=== PATIENT | male | born 1975 | race African-American/Black ===

== ENCOUNTER 2018-06-18 14:06 | Inpatient (IN) | payer SELFPAY ==
[2018-06-18] MEDS ORDERED: hydrALAZINE 20 MG/ML VIAL ONE (14:53)
[2018-06-18] MEDS ORDERED: Labetalol HCl 100 MG/20 ML VIAL ONE (15:23)
[2018-06-18 15:39] LABS: Hemoglobin 10.5 g/dL (14.0-18.0); Mean Corpuscular HGB CONC 31.7 g/dL (32.0-36.0); Mean Corpuscular Hemoglobin 28.3 pg (27.0-31.0); Mean Corpuscular Volume 89.4 fL (78.0-98.0); Mean Platelet Volume 8.8 fL (7.4-10.4); Platelet Count 327 thou/uL (130-400); RBC Distribution Width 15.2 % (11.5-14.5); White Blood Cell (WBC) Count 5.8 thou/uL (4.8-10.8)
[2018-06-18] MEDS ORDERED: Proparacaine 0.5% Opth 15 ML BOT ONE (15:42)
[2018-06-18] MEDS ORDERED: Nitroglycerin 2% Ointment 1 INCH/1 GM Packet ONE (15:45)
[2018-06-18 16:00] LABS: Hypochromia SLIGHT = 6-15 cells (100X) (0-5/hpf); Lymphocytes 31 % (21-51); MDiff Complete? YES; Neutrophil 69 % (42-75); Platelet Morphology Comment Appears Adequate
[2018-06-18] MEDS ORDERED: niCARdipine 20MG In NaCl 20 MG/200 ML BAG ONE ×2 (16:14→18:57)
[2018-06-18 16:33] LABS: ALT (SGPT) 17 U/L (8-55); AST (SGOT) 17 U/L (5-34); Albumin 3.2 g/dL (3.5-5.0); Alkaline Phosphatase 44 U/L (40-150); Anion Gap 12 mmol/L (10-20); BUN (Urea Nitrogen) 20 mg/dL (8.9-20.6); Bilirubin, Total 0.8 mg/dL (0.2-1.2); Calc. Creatinine Clearance 0 mL/min (70-130); Calcium 8.8 mg/dL (7.8-10.44); Carbon Dioxide 19 mmol/L (22-29); Chloride 110 mmol/L (98-107); Estimated GFR-MDRD 61; Globulin 3.7 g/dL (2.4-3.5); Glucose 108 mg/dL (70-105); Potassium 4.2 mmol/L (3.5-5.1); Protein, Total 6.9 g/dL (6.0-8.3); Sodium 137 mmol/L (136-145)
--- NOTE | 2018-06-18 16:53 | PDOC.FPRHP ---
- History of Present Illness Chief Complaint: Blurry Vision History of Present Illness: Mr Rocha is a 42yo male with pmh of HTN and poorly controlled DM presenting with blurry vision that started 4 days ago. He recently moved from [place], [place]. Can see better out of right eye than the left. Started gradually. Took off a day of work last week due to blurry vision. 2 days ago it got acutely worse. Last hospitalized in 2017 for hyperglycemia. No known hx of DKA. Takes Novolog 70/30 30U once daily. Currently wearing a boot due to left diabetic foot wound. Hx of right 2nd toe amputation due to poorly controlled DM. Denies chest pain, palpitations, LAMAR, confusion. Brother is present in the room. Reports seeing doctor at [facility] in February who prescribed Losartan 50mg. Brother reports he has been complaining of frequent headaches over the last 4 months. PCP: None just moved from [place] ED Course: Started on Cardene gtt. Mg 2g, Nitro patch, Labetalol 20mg. - Allergies/Adverse Reactions Allergies Allergy/AdvReac Type Severity Reaction Status Date / Time No Known Allergies Allergy Unverified 06/18/18 17:49 - Home Medications Medication Instructions Recorded Confirmed Type Atorvastatin Calcium [Lipitor] 20 mg PO DAILY 06/18/18 06/18/18 History Losartan Potassium 50 mg PO QAM 06/18/18 06/18/18 History Insulin NPH Hum/Reg Insulin HM 30 unit SC BID 06/19/18 06/19/18 History [Novolin 70/30] - History PMHx: Insulin Dependent DM, HTN, possible CARMELO PSHx: Testicular surgery, back surgery, right 2nd toe amputation FHx: Hx of DM, HTN on fathers side Social: Denies alcohol, tobacco and drug use. - Review of Systems General: denies: fever/chills, weight/appetite/sleep changes Eyes: reports: vision changes. denies: eye pain ENT: denies: nasal congestion, rhinorrhea Respiratory: denies: cough, congestion, shortness of breath Cardiovascular: reports: edema. denies: chest pain, palpitation Gastrointestinal: reports: nausea, vomiting. denies: diarrhea, constipation, abdominal pain Genitourinary: denies: dysuria, other (hematuria) Skin: reports: lesions (left foot wound). denies: rashes Musculoskeletal: reports: swelling. denies: pain Neurological: denies: numbness, weakness - Vital signs BP: 174/82 (Max: 214/116) HR: 66 RR: 18 Tmax: 98.1 Pox: 97% on RA Wt: 188kg - Physical Exam Constitutional: NAD, awake, alert and oriented, well developed -Constitutional: Obese HEENT: normocephalic and atraumatic, conjunctiva clear, MMM, oropharynx clear, other (right upper) -HEENT: poor dentition Neck: supple, trachea midline, no LAD, no thyromegaly Heart: RRR, no murmurs/rubs/gallops, other (edema present b/l LE) Lungs: CTAB, no respiratory distress Abdomen: soft, non-tender, bowel sounds present Musculoskeletal: other (notable edema bilaterally) Neurological: no focal deficit Skin: other (diabetic foot wound on plantar aspect of foot) Heme/Lymphatic: no unusual bruising or bleeding Psychiatric: normal mood and affect, good judgment and insight, intact recent and remote memory FMR H&P: Results - Labs Result Diagrams: 06/19/18 04:06 06/18/18 16:11 Lab results: WBC 5.8 thou/uL (4.8-10.8) 06/18/18 15:21 Hgb 10.5 g/dL (14.0-18.0) L 06/18/18 15:21 Hct 33.1 % (42.0-52.0) L 06/18/18 15:21 MCV 89.4 fL (78.0-98.0) 06/18/18 15:21 Plt Count 327 thou/uL (130-400) 06/18/18 15:21 Sodium 137 mmol/L (136-145) 06/18/18 16:11 Potassium 4.2 mmol/L (3.5-5.1) 06/18/18 16:11 Chloride 110 mmol/L (98-107) H 06/18/18 16:11 Carbon Dioxide 19 mmol/L (22-29) L 06/18/18 16:11 BUN 20 mg/dL (8.9-20.6) 06/18/18 16:11 Creatinine 1.29 mg/dL (0.7-1.3) 06/18/18 16:11 Glucose 108 mg/dL (70-105) H 06/18/18 16:11 Calcium 8.8 mg/dL (7.8-10.44) 06/18/18 16:11 Total Bilirubin 0.8 mg/dL (0.2-1.2) 06/18/18 16:11 AST 17 U/L (5-34) 06/18/18 16:11 ALT 17 U/L (8-55) 06/18/18 16:11 Alkaline Phosphatase 44 U/L (40-150) 06/18/18 16:11 Serum Total Protein 6.9 g/dL (6.0-8.3) 06/18/18 16:11 Albumin 3.2 g/dL (3.5-5.0) L 06/18/18 16:11 FMR H&P: A/P - Problem List (1) Bilateral retinal detachment Current Visit: Yes Status: Acute Code(s): H33.23 - SEROUS RETINAL DETACHMENT , BILATERAL (2) Hypertensive urgency Current Visit: Yes Status: Acute Code(s): I16.0 - HYPERTENSIVE URGENCY (3) Chronic hypertension Current Visit: Yes Status: Acute Code(s): I10 - ESSENTIAL (PRIMARY) HYPERTENSION (4) Insulin dependent diabetes mellitus Current Visit: Yes Status: Acute Code(s): E11.9 - TYPE 2 DIABETES MELLITUS WITHOUT COMPLICATIONS; Z79.4 - SENIOR LIVING (CURRENT) USE OF INSULIN (5) CARMELO (obstructive sleep apnea) Current Visit: Yes Status: Acute Code(s): G47.33 - OBSTRUCTIVE SLEEP APNEA ( ADULT) (PEDIATRIC) - Plan Mr Rocha is a 42yo male with pmh of HTN and poorly controlled DM presenting with bilateral retinal detachments and HTN emergency HTN emergency - Initial BPs 220's/100's - Goal for first 24hrs 160 SBP with Cardene gtt started in ED - Will initiate PO BPs meds prior to d/c - Trend trops - Ordered TSH, FLP - Admit to ICU, will consult pulm Left diabetic foot ulcer - Consulted wound care. Currently wearing a boot. - PT consulted Bilateral Retinal Detachment - Bedside US by ED suggestive of detachment - Dr. Ayala consulted in ED, appreciate recs - Control BP as above DMII - Likely uncontrolled, will check A1c - Currently on Novolog 70/30 30U daily. Will continue - CC diet and dietetics consult - ACHS accuchecks with SSI Normocytic Anemia - Hgb 10.7 - Continue to monitor with CBC - Consider outpt workup Probable CARMELO - Recommend outpt sleep study duy for HTN control Code Status: FULL DVT ppx: SCDs PCP: None, pt just moved to town. Reports seeing Dr padilla [facility] in [place] Discussed with Dr Bowens who was present in the ED when pt was evaluated FMR H&P: Upper Level - Pertinent history Deangelo Rocha is a 42 year old M with a PMH of insulin dependent type 2 DM, HTN who presented to the ED with a 3 day history of progressively worsening blurry vision. States that she recently moved from [place] and he established care with a pcp, unsure of who, who gave him losartan but he has not been taking his medication. States that he taken insulin 70/30 30 U daily. He denies fever, chills, sudden onset vision loss, dark spots in vision, flashing lights in visual field, altered mental status, head injury/trauma, abnormalities in gait. He also endorses a foot wound that he was getting wound care for but not since he moved to [facility]. Patient did endorse worsening of headaches over the last 4 months. The blurry vision is worse in the left eye but present in both. He wears glasses regularly. In the ED, his initial BP, per ERMD, was in the 220s-240s systolic. ERMD performed bedside US of eyes and there was significant concern for bilateral retinal detachment. ERMD consulted ophtho, Dr. Ayala, who recommended getting BP control and agreed to come see patient during admission. In the ER, he received Labetalol 20 mg IVP following by initiation of Cardene gtt for BP control. He was also given nitro patch and mag sulfate IV. BPs when admitting team saw patient were in the 140s-160s on cardene gtt. ROS: 12 point ROS reviewed with patient and were negative unless otherwise stated in HPI. - Pertinent findings Vitals: BP 162/72, HR 70, RR 16, T 97.9, O2 sat 98% on RA PE: Gen: morbidly obese male in no acute distress HEENT: AT/NC, MMM, EOMI, PERRL, conjunctiva clear without erythema or icterus, no JVD CV: RRR no murmurs, rubs, or gallops Lungs: CTAB, no wheezes, rales, rhonchi Abd: obese, soft, nontender Ext: edema noted bilateral Neuro: no focal deficits, CN II-XII grossly intact Psych: Alert and oriented X4, normal mood and affect Skin: diabetic foot wound to left heel Laboratory Tests 06/18/18 06/18/18 06/18/18 15:21 16:11 16:11 WBC 5.8 Hgb 10.5 L Hct 33.1 L Plt Count 327 Sodium 137 Potassium 4.2 Chloride 110 H Carbon Dioxide 19 L BUN 20 Creatinine 1.29 Estimated GFR (MDRD) 61 Glucose 108 H Calcium 8.8 Magnesium 1.5 L Total Bilirubin 0.8 AST 17 ALT 17 Alkaline Phosphatase 44 Troponin I Serum Total Protein 6.9 Albumin 3.2 L 06/18/18 16:11 WBC Hgb Hct Plt Count Sodium Potassium Chloride Carbon Dioxide BUN Creatinine Estimated GFR (MDRD) Glucose Calcium Magnesium Total Bilirubin AST ALT Alkaline Phosphatase Troponin I Less than 0.010 Serum Total Protein Albumin EKG: NSR with rate of 72, cannot r/o anterior infarct - Plan Date/Time: 06/18/181652 ILee MD, have evaluated this patient and agree with findings/plan as outlined by hr intern resident. Pertinent changes/additions are listed here. Hypertensive Emergency - BPs in the 220s-240s systolic in ED with likely b/l retinal detachment - Admit to CCU - Dr. Ayala consulted in the ED, appreciate recs - Consult Pulm/Crit Care, appreciate recs - Continue cardene gtt with goal BP of 160-180s for the first 24 hours - Trend cardiac enzymes, check TSH Bilateral Retinal Detachment: likely - ERMD performed bedside US which was suggestive of detachment - progressive worsening of blurry vision over the last 3 days - Dr. Ayala consulted in ED, appreciate recs - otherwise, see #1 DM2, insulin dependent - Continue home regimen of 70/30, 30 U SQ daily - Accuchecks ACHS - CC diet, HH incl low Na diet - Mod SSI - check HgA1c and FLP HTN - will closely maintain goal pressures with cardene gtt - will transition to PO antihypertensive within 24-48 hours Diabetic Foot Wound - consulted wound care Normocytic Anemia - hg 10.5 on admission - continue to monitor - checking iron studies - will likely need outpatient workup/follow up Hypomagnesemia - Mag 1.5 in ED, s/p Mag sulfate IV - continue to monitor and replace as needed Morbid Obesity - fall precautions, amb with assist - 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 Max and Vineet I agree with the History, Examination, Assessment and Plan documented above with any addition or exceptions noted below. 42 yo obese diabetic male with 3 days worsening vision evaluated in ER with hypertensive emergency with acute vision loss due to bilateral retinal detachment . Patient will be admitted to ICU for IV cardene drip for BP management and Ophthalmology evaluation. rec SS insulin for DM control and basal insulin, left foot with Charcot foot and diabetic ulcer rec wound care consult immediate issue is BP control and attention to vision loss however assisted will need further evaluation of anemia, r/o CARMELO , optimize diabetic control and continued evaluation left foot.
[2018-06-18] MEDS ORDERED: Magnesium 2 GM/50 ML BAG (IN WATER) ONE (17:01)
[2018-06-18] MEDS ORDERED: niCARdipine HCl 25 MG in Sodium Chloride 0.9% 250 ML 240 ML IVPB SCH (18:15)
--- NOTE | 2018-06-18 18:38 | CT ---
CT OF THE BRAIN WITHOUT CONTRAST: 06/18/18 HISTORY: 42-year-old male with gradual onset of vision changes with bilateral blurring of his vision. Patient reports an episode of nausea and vomiting following vision changes. FINDINGS: No evidence of infarct, hemorrhage, midline shift or abnormal extra-axial fluid collections are seen. The ventricular size is normal and the basilar cisterns patent. The bony calvarium is intact. The vi sualized paranasal sinuses and mastoid air cells are well aerated. IMPRESSION: No CT evidence of acute intracranial process. POS: [facility]
--- NOTE | 2018-06-18 19:20 | CT ---
CT FACIAL BONES WITHOUT CONTRAST 06/18/18 HISTORY: Vision changes. Blurring of vision. FINDINGS: The orbital chaidez are intact. No proptosis is seen. No significant retrobulbar mass is identified. The facial bones are intact. The visualized paranasal sinuses and mastoid air cells are well aerated. No temporomandibular dislocation is seen. IMPRESSION: No CT evidence of facial or orbital wall fracture. POS: [facility]
[2018-06-18] MEDS ORDERED: Dextrose 5% in Water 1,000 ML IV PRN (19:40)
[2018-06-18] MEDS ORDERED: Dextrose 50% Abboject 50 ML SYRINGE SLOW IVP PRN (19:40)
[2018-06-18] MEDS ORDERED: Ondansetron PF 4 MG/2 ML Vial IVP PRN (19:40)
--- NOTE | 2018-06-18 20:14 | RAD ---
PORTABLE CHEST ONE VIEW: 06/18/18 at 8 p.m. HISTORY: Hypertensive emergency. FINDINGS/IMPRESSION: The heart size is borderline. The lungs are expanded without focal areas of consolidation, pneumotho rax, kolby pulmonary edema or pleural effusions. POS: [facility]
[2018-06-18] MEDS: Sodium Chloride 0.45% 1,000 ML IV SCH (21:46)
[2018-06-19] MEDS: niCARdipine HCl 50 MG in Sodium Chloride 0.9% 250 ML 230 ML IVPB SCH ×4 (02:18→23:03)
[2018-06-19 04:19] LABS: #Basophils 0.1 thou/uL (0.0-0.2); #Eosinphils 0.1 thou/uL (0.0-0.7); #Lymphocytes 3.3 thou/uL (1.20-3.40); #Monocytes 0.4 thou/uL (0.11-0.59); #Neutrophils 3.2 thou/uL (1.40-6.50); %Basophils 1.1 % (0.0-1.0); %Eosinophils 1.5 % (0.0-10.0); %Lymphocytes 46.4 % (21.0-51.0); Hemoglobin 9.3 g/dL (14.0-18.0); Mean Corpuscular HGB CONC 31.1 g/dL (32.0-36.0); Mean Corpuscular Hemoglobin 27.9 pg (27.0-31.0); Mean Corpuscular Volume 89.8 fL (78.0-98.0); Mean Platelet Volume 7.5 fL (7.4-10.4); Platelet Count 320 thou/uL (130-400); Red Blood Cell (RBC) Count 3.32 mill/uL (4.70-6.10); White Blood Cell (WBC) Count 7.1 thou/uL (4.8-10.8)
[2018-06-19 04:24] LABS: Hemoglobin A1c 5.1 % (4.0-6.0)
[2018-06-19 04:40] LABS: Cardiac Risk 4.6 (Less than 4.5)
[2018-06-19] MEDS: Sodium Chloride 0.45% 1,000 ML IV SCH (05:24)
--- NOTE | 2018-06-19 07:36 | PDOC.FM ---
- Subjective Subjective: Seen at bedside this am in no acute distress. No new complaints. Has continued reduced vision in L eye. - Objective MAR Reviewed: Yes Vital Signs & Weight: Vital Signs (12 hours) Temp Pulse Ox 06/19/18 04:00 98.1 F 06/19/18 00:00 98.3 F 06/18/18 20:00 98 F 98 06/18/18 19:40 99 Weight Weight 198.6 kg Most Recent Monitor Data Heart Rate from ECG 77 NIBP 176/89 NIBP BP-Mean 118 Respiration from ECG 22 SpO2 100 I&O: 06/18/18 06/19/18 06/20/18 06:59 06:59 06:59 Intake Total 1762 Output Total 700 Balance 1062 Result Diagrams: 06/19/18 04:06 06/18/18 16:11 Phys Exam - Physical Examination Constitutional: NAD HEENT: moist MMs Loss of lateral peripheral vision in L eye Neck: no JVD Respiratory: clear to auscultation bilateral Cardiovascular: RRR, no significant murmur Gastrointestinal: soft, non-tender, no distention Musculoskeletal: no edema Neurological: non-focal, moves all 4 limbs Psychiatric: normal affect, A&O x 3 Skin: no rash Dx/Plan (1) Bilateral retinal detachment Code(s): H33.23 - SEROUS RETINAL DETACHMENT, BILATERAL Status: Suspected (2) Chronic hypertension Code(s): I10 - ESSENTIAL (PRIMARY) HYPERTENSION Status: Chronic (3) Hypertensive urgency Code(s): I16.0 - HYPERTENSIVE URGENCY Status: Acute (4) Insulin dependent diabetes mellitus Code(s): E11.9 - TYPE 2 DIABETES MELLITUS WITHOUT COMPLICATIONS; Z79.4 - CERTIFIED FLEX ENDOSCOPE REPROCESSOR (CURRENT) USE OF INSULIN Status: Acute (5) CARMELO (obstructive sleep apnea) Code(s): G47.33 - OBSTRUCTIVE SLEEP APNEA (ADULT) (PEDIATRIC) Status: Acute - Plan Plan: 1. Suspected retinal detachment - per ERMD, concern of detachment after bedside US - current physical exam c/w this dx. - ophthalmology consult pending 2. Hypertensive emergency - cardene currently at 4, continue to titrate down - restart home meds 3. DM - well controlled ,A1c of 5.3 - continue home meds - consistent carb diet, achs accucheck 4. HTN - as above 5. CARMELO - cpap at night Dispo: Currently stable, hospital course pending ophtho recommendations Addendum - Attending - Attending Attestation Date/Time: 06/19/18 0707 I personally evaluated the patient and discussed the management with Dr. Michelle I agree with the History, Examination, Assessment and Plan documented above with any addition or exceptions noted below. Appreciate recommendation Critical care to offload fluids. Ophthalmology consult pending continue cardene drip and convert po RX will need at least two antihypertensive agents. Vision improved to right eye left remains with visual field defect. Diabetes under fair control. Appreciate Pulmonary recs Outpatient inlab sleep study suggested r/o CARMELO and potential need BiPaP.
[2018-06-19] MEDS: Atorvastatin Calcium 20 MG TAB PO SCH (08:52)
[2018-06-19] MEDS: Ferrous Sulfate 325 MG TAB PO SCH (08:52)
[2018-06-19] MEDS ORDERED: Losartan 25 MG TAB PO SCH (09:00)
[2018-06-19] MEDS: Furosemide 40 MG/4 ML VIAL SLOW IVP SCH (09:10)
[2018-06-19] MEDS ORDERED: Carvedilol 6.25 MG TAB PO SCH (09:15)
--- NOTE | 2018-06-19 12:29 | CON ---
DATE OF CONSULTATION: 06/19/2018 SERVICE: Pulmonary Medicine. REASON FOR CONSULT: ICU patient. HISTORY OF PRESENT ILLNESS: The patient is a 42-year-old male with past medical history significant for hypertension. He is typically on losartan. He was in his usual state of health until 3 days prior to admission when he started having blurry vision, which became progressively worse to the point where he could barely see. He presented to the emergency department and was discovered to have critically elevated blood pressure. He was also found to have a retinal detachment. As such, he was tucked in the ICU to get blood pressure under better control. Overnight, he was placed on a Cardene drip. His vision has improved ever so slightly. He denies any current fevers, chills, cough, sputum production, shortness of breath, chest pain, nausea, vomiting, or diarrhea. Otherwise, he is in his usual state of health. PAST MEDICAL HISTORY: 1. Hypertension. 2. Dyslipidemia. 3. Type 2 diabetes mellitus. 4. Obstructive sleep apnea, strongly suspected. PAST SURGICAL HISTORY: 1. Testicular surgery. 2. Right second toe amputation. 3. Back surgery. FAMILY HISTORY: Noncontributory. SOCIAL HISTORY: Negative for alcohol, tobacco, or illicit drug use. He has no exposure to chemicals, dust, asbestos, or tuberculosis. ALLERGIES: NO KNOWN DRUG ALLERGIES. MEDICATIONS: List of his inpatient medications were reviewed. No specific updates were made at this time. REVIEW OF SYSTEMS: General; head, ears, eyes, nose, and throat; cardiovascular; respiratory; GI; ; musculoskeletal; neurologic; and skin are negative except as mentioned in the HPI. PHYSICAL EXAMINATION: VITAL SIGNS: Afebrile, pulse 70, blood pressure 177/77, respirations 17, and saturation 100% on room air. GENERAL: The patient is awake and alert, in no apparent distress. LUNGS: Excellent air entry. There is no prolonged expiratory phase or wheezing present. HEART: Normal rate, regular. ABDOMEN: Soft, nontender, and nondistended. Bowel sounds are positive. MUSCULOSKELETAL: No cyanosis or clubbing. There is diffuse 2+ pitting in bilateral lower extremities. He has an ulcer on the backside of his left heel. This was present on admission. GENITOURINARY: No Owens. NEUROLOGIC: Grossly nonfocal. LABORATORY DATA: Comprehensive metabolic profile was essentially unremarkable except for creatinine of 1.29, which is likely close to his baseline. Troponin is negative x2. TSH is unremarkable. Triglyceride 113 and total cholesterol 134, well with our goal. Hemoglobin A1c 5.1. IMAGING DATA: 1. CT of the facial bones demonstrates no evidence of facial orbital wall fracture. 2. CT of the brain demonstrates no acute intracranial abnormality. 3. Chest x-ray demonstrates no acute cardiopulmonary abnormality. ASSESSMENT: 1. Hypertensive emergency. 2. Retinal detachment. 3. Obstructive sleep apnea, strongly suspected. 4. Volume overload. DISCUSSION AND PLAN: We will initiate Lasix. I will put him on p.r.n. blood pressure medications. We will see if we can wean the Cardene away through time. The patient will likely require a diuretic in the outpatient setting. Pulmonary/Critical Care will continue to follow along while he remains in this location. Once he is off the Cardene drip, he will be stable for transition to the floor. I will make certain he is set up for a PSG in the outpatient setting. 70 minutes have been devoted to this patient in various activities. I personally reviewed all imaging studies and laboratory data noted within this document. For fifty percent of this time, I was interacting with the patient at the bedside or coordinating care with the care team. For the remainder of the time I was immediately available to the patient in the hospital unit. Job ID: [id number] MTDD
[2018-06-19] MEDS: HumaLOG 300 UNITS/3 ML VIAL SC PRN ×2 (16:39→23:07)
[2018-06-19] MEDS: Carvedilol 6.25 MG TAB PO SCH (16:43)
--- NOTE | 2018-06-19 19:15 | CON ---
DATE OF CONSULTATION: 06/19/2018 REASON FOR CONSULTATION: I was consulted to see the patient regarding bilateral vision loss. HISTORY OF PRESENT ILLNESS: The patient is a 42-year-old black male, in no apparent distress, seen in the hospital bed. He complained of chronic vision loss in the left eye with a recent decreased vision loss in the right eye. The patient has a known history of diabetes and hypertension, and he was admitted for hypertensive control. He has had no previous retinal exams and has no local general medical doctor. PHYSICAL EXAMINATION: GENERAL: The patient was in no apparent distress. He is obese with bilateral pitting edema on both extremities. OPHTHALMIC: Visual acuity was at least counting fingers at 3 feet in the right eye and hand motion in the left eye with current correction. Pressure by Moe-Pen was15 mmHg in both eyes. Penlight exam showed no neovascularization of the iris in either eye. Corneas were clear in both eyes. There was no evidence of anterior chamber hemorrhage. Pupils were 3 mm in both eyes with a positive APD in the left eye. Motility was full. External examination was normal. Fundus exam, Indirect ophthalmoscopy only revealed proliferative diabetic retinopathy with no vitreous hemorrhage. There was proliferation that was mainly nasal and appeared to be non macular involving the right eye. There was a tractional retinal detachment with questionable macular involvement in the left eye. ASSESSMENT: Proliferative diabetic retinopathy with tractional retinal detachments in both eyes with questionable macular involvement in the left eye. RECOMMENDATIONS: 1. The patient is being medically stabilized and blood pressure controlled. 2. The patient can follow up with [facility] as an [facility]. Typically , these patients require anti-VEGF treatments to control neovascularization and panretinal photocoagulation to the periphery to stabilize the retina. The patient may require surgery on the left eye to relieve his tractional retinal detachment. Job ID: [id number] [facility]
[2018-06-20 04:30] LABS: #Eosinphils 0.2 thou/uL (0.0-0.7); #Lymphocytes 3.6 thou/uL (1.20-3.40); #Monocytes 0.6 thou/uL (0.11-0.59); #Neutrophils 4.2 thou/uL (1.40-6.50); %Basophils 0.6 % (0.0-1.0); %Eosinophils 2.1 % (0.0-10.0); %Monocytes 6.7 % (0.0-10.0); %Neutrophils 48.7 % (42.0-75.0); Hemoglobin 10.2 g/dL (14.0-18.0); Mean Corpuscular HGB CONC 31.1 g/dL (32.0-36.0); Mean Corpuscular Hemoglobin 27.8 pg (27.0-31.0); Mean Corpuscular Volume 89.4 fL (78.0-98.0); Mean Platelet Volume 7.5 fL (7.4-10.4); Platelet Count 354 thou/uL (130-400); RBC Distribution Width 13.1 % (11.5-14.5); Red Blood Cell (RBC) Count 3.67 mill/uL (4.70-6.10); White Blood Cell (WBC) Count 8.5 thou/uL (4.8-10.8)
[2018-06-20 04:50] LABS: Phosphorus 3.3 mg/dL (2.3-4.7)
[2018-06-20 04:51] LABS: Anion Gap 9 mmol/L (10-20); BUN (Urea Nitrogen) 18 mg/dL (8.9-20.6); Calc. Creatinine Clearance 200 mL/min (70-130); Calcium 8.7 mg/dL (7.8-10.44); Carbon Dioxide 23 mmol/L (22-29); Chloride 108 mmol/L (98-107); Estimated GFR-MDRD 71; Glucose 160 mg/dL (70-105); Magnesium 1.6 mg/dL (1.6-2.6); Potassium 4.4 mmol/L (3.5-5.1); Sodium 136 mmol/L (136-145)
--- NOTE | 2018-06-20 06:43 | PDOC.FM ---
- Subjective Subjective: Seen at bedside this morning resting comfortably. No new complaints or concerns from patient or nursing. No acute events over night. He was unable to be weaned from cardene yesterday. - Objective MAR Reviewed: Yes Vital Signs & Weight: Vital Signs (12 hours) Temp Pulse Ox 06/20/18 04:00 98.1 F 06/20/18 00:00 98.2 F 06/19/18 20:00 98.1 F 06/19/18 19:44 99 06/19/18 19:40 100 Weight Weight 198.6 kg Most Recent Monitor Data Heart Rate from ECG 89 NIBP 185/73 NIBP BP-Mean 110 Respiration from ECG 17 SpO2 100 I&O: 06/18/18 06/19/18 06/20/18 06:59 06:59 06:59 Intake Total 1762 1255 Output Total 700 2950 Balance 1062 -1695 Result Diagrams: 06/20/18 04:07 06/21/18 05:52 Phys Exam - Physical Examination Constitutional: NAD HEENT: moist MMs Loss of lateral field of vision in L eye Neck: no JVD Respiratory: clear to auscultation bilateral Cardiovascular: RRR 3/6 systolic murmur Gastrointestinal: soft, non-tender Edema in both LE to mid tibia Neurological: non-focal, moves all 4 limbs Psychiatric: normal affect, A&O x 3 Skin: no rash Dx/Plan (1) Bilateral retinal detachment Code(s): H33.23 - SEROUS RETINAL DETACHMENT, BILATERAL Status: Acute (2) Chronic hypertension Code(s): I10 - ESSENTIAL (PRIMARY) HYPERTENSION Status: Chronic (3) Hypertensive urgency Code(s): I16.0 - HYPERTENSIVE URGENCY Status: Resolved (4) Insulin dependent diabetes mellitus Code(s): E11.9 - TYPE 2 DIABETES MELLITUS WITHOUT COMPLICATIONS; Z79.4 - FPC (CURRENT) USE OF INSULIN Status: Suspected (5) CARMELO (obstructive sleep apnea) Code(s): G47.33 - OBSTRUCTIVE SLEEP APNEA (ADULT) (PEDIATRIC) Status: Suspected - Plan Plan: 1. Bilateral retinal detachment - Seen by Dr Ayala yesterday who confirmed b/l detachment with possible involvement of the L macula. Recommendation was to fu outpatient 2. Hypertensive emergency - cardene currently at 4. Was unable to decrease rate yesterday - Increase losartan dose this morning. Was started on coreg yesteday 3. DM - well controlled ,A1c of 5.3 - continue home meds - consistent carb diet, achs accucheck 4. HTN - as above 5. CARMELO, suspected - will need outpatient study. This may be contributing as a secondary cause of resistant hypertension Dispo: currently stable. Likely LOS 24-48 hours. Will move out of unit when he can be weaned from drip. Addendum - Attending - Attending Attestation Date/Time: 06/21/18 2864 I personally evaluated the patient and discussed the management with on 06/20/2018 I agree with the History, Examination, Assessment and Plan documented above with any addition or exceptions noted below - Patient without complaints. Afebrile VSS. A/P: 1) HTN emergency- back on cardene drip. Adjusted po meds. Continue to titrate as needed. 2) Retinal detachment - plan for outpatient follow-up. 3) DM - continue current meds 4) HTN - will check causes of seconday HTN; enal USG ordered and labs.
[2018-06-20] MEDS: HumaLOG 300 UNITS/3 ML VIAL SC PRN ×3 (07:23→21:20)
[2018-06-20] MEDS: Ferrous Sulfate 325 MG TAB PO SCH (08:19)
[2018-06-20] MEDS: Carvedilol 6.25 MG TAB PO SCH ×2 (08:19→17:17)
[2018-06-20] MEDS: Losartan 25 MG TAB PO SCH (08:20)
[2018-06-20] MEDS: Atorvastatin Calcium 20 MG TAB PO SCH (08:21)
[2018-06-20] MEDS: Furosemide 40 MG/4 ML VIAL SLOW IVP SCH (08:21)
[2018-06-20] MEDS ORDERED: HumuLIN 70/30 (300 UNITS/3 ML VIAL) SC SCH (09:00)
[2018-06-20] MEDS ORDERED: cloNIDine 0.2 MG TAB PO SCH (10:30)
[2018-06-20] MEDS: niCARdipine HCl 50 MG in Sodium Chloride 0.9% 250 ML 230 ML IVPB SCH ×3 (11:00→21:13)
[2018-06-20] MEDS: HumuLIN 70/30 (300 UNITS/3 ML VIAL) SC SCH ×2 (11:01→21:18)
[2018-06-20] MEDS: cloNIDine 0.2 MG TAB PO PRN ×2 (16:19→22:17)
--- NOTE | 2018-06-20 16:27 | PRG ---
DATE OF SERVICE: 06/20/2018 SERVICE: Pulmonary Medicine. INTERVAL HISTORY: The patient is doing wonderful from respiratory standpoint. He lost IV access today. As such, the Cardene drip is off, his blood pressure shot back up. Yet, we are in the midst of trying to establish IV access so that we can restart the Cardene. He denies any new onset neurologic changes or visual disturbances. PHYSICAL EXAMINATION: VITAL SIGNS: Afebrile, pulse 64, blood pressure 176/81, respirations 16, saturation 98% on room air. GENERAL: The patient is awake and alert, in no apparent distress. LUNGS: Excellent air entry with no prolonged expiratory phase or wheezing. HEART: Normal rate and regular. ABDOMEN: Soft, nontender, and nondistended. Bowel sounds are positive. MUSCULOSKELETAL: No cyanosis or clubbing. No pitting in the bilateral lower extremities. NEUROLOGIC: Grossly nonfocal. Visual disturbances from the left eye are still present. LABORATORY DATA: WBC 8.5, hemoglobin 10.2, platelets 354,000. Creatinine 1.34, which is gently up trending. Basic metabolic profile is otherwise unremarkable. Magnesium 1.6, phosphorus 3.3. IMAGING STUDIES: Echocardiogram shows normal ejection fraction with diastolic dysfunction. ASSESSMENT: 1. Hypertensive emergency. 2. Retinal detachment with left eye visual disturbance. 3. Obstructive sleep apnea, strongly suspected. 4. Chronic diastolic heart failure. PLAN: The patient will get back on his Cardene drip. We are going to escalate our p.o. dose of blood pressure medications. He will stay in the ICU until he is off this drip, and his blood pressures are maintained within an acceptable range. Pulmonary Critical Care will continue to follow along while he remains in this location. In the outpatient setting, I will make certain that he has appropriate followup to investigate his sleep apnea. Job ID: [id number]
--- NOTE | 2018-06-21 06:42 | PDOC.FM ---
- Subjective Subjective: Seen at bedside this morning resting comfortably. Cash was dc'd over night and BP has been below 180/100 since. No new complaints. No acute events over night. - Objective MAR Reviewed: Yes Vital Signs & Weight: Vital Signs (12 hours) Temp BP Pulse Ox 06/21/18 04:00 97.8 F 06/21/18 00:00 98.0 F 06/20/18 22:17 188/89 H 06/20/18 20:00 98.6 F 96 06/20/18 19:00 98 Weight Admit Weight 198.22 kg Weight 198.6 kg Most Recent Monitor Data Heart Rate from ECG 62 NIBP 151/84 NIBP BP-Mean 106 Respiration from ECG 15 SpO2 96 I&O: 06/19/18 06/20/18 06/21/18 06:59 06:59 06:59 Intake Total 1762 1255 1721 Output Total 700 2950 2750 Balance 1062 -1695 -1029 Result Diagrams: 06/20/18 04:07 06/21/18 05:52 Phys Exam - Physical Examination Constitutional: NAD HEENT: moist MMs Neck: no JVD Respiratory: clear to auscultation bilateral Cardiovascular: RRR 2/6 systolic murmur Gastrointestinal: soft, non-tender, no distention Pitting edema to mid tibia b/l Neurological: moves all 4 limbs Psychiatric: normal affect, A&O x 3 Skin: no rash Dx/Plan (1) Bilateral retinal detachment Code(s): H33.23 - SEROUS RETINAL DETACHMENT, BILATERAL Status: Acute (2) Chronic hypertension Code(s): I10 - ESSENTIAL (PRIMARY) HYPERTENSION Status: Chronic (3) Hypertensive urgency Code(s): I16.0 - HYPERTENSIVE URGENCY Status: Resolved (4) Insulin dependent diabetes mellitus Code(s): E11.9 - TYPE 2 DIABETES MELLITUS WITHOUT COMPLICATIONS; Z79.4 - [facility] (CURRENT) USE OF INSULIN Status: Suspected (5) CARMELO (obstructive sleep apnea) Code(s): G47.33 - OBSTRUCTIVE SLEEP APNEA (ADULT) (PEDIATRIC) Status: Suspected - Plan Plan: 1. Bilateral retinal detachment - Recommendation was to fu outpatient w/ Dr Ayala 2. Hypertensive emergency, resolved 3. DM - well controlled ,A1c of 5.3 - continue home meds - consistent carb diet, achs accucheck 4. HTN - adding HCTZ - work up for secondary causes with renal doppler, renin/aldosterone, and outpatient sleep study 5. CARMELO, suspected - will need outpatient study. This may be contributing as a secondary cause of resistant hypertension Dispo: currently stable and improving. Possibly ready to dc today if BP continues to be controlled. Will transfer out of ICU today Addendum - Attending - Attending Attestation Date/Time: 06/21/18 8566 I personally evaluated the patient and discussed the management with Dr. Michelle I agree with the History, Examination, Assessment and Plan documented above with any addition or exceptions noted below - Patient without complaints. Afebrile BP 150-170/70-90s A/P: 1) HTN emergency- off cardene; continue to adjust po meds as needed. 2) Malignant HTN - renal artery doppler and labs ordered to evalaute for secondary causes. Continue to adjust po meds. 3) Retinal detachment - follow-up as outpatient
[2018-06-21 07:31] LABS: Anion Gap 11 mmol/L (10-20); BUN (Urea Nitrogen) 19 mg/dL (8.9-20.6); Calc. Creatinine Clearance 219 mL/min (70-130); Calcium 8.8 mg/dL (7.8-10.44); Carbon Dioxide 24 mmol/L (22-29); Chloride 106 mmol/L (98-107); Estimated GFR-MDRD 79; Glucose 96 mg/dL (70-105); Potassium 4.6 mmol/L (3.5-5.1); Sodium 136 mmol/L (136-145)
[2018-06-21] MEDS: Losartan 25 MG TAB PO SCH (08:43)
[2018-06-21] MEDS: HumuLIN 70/30 (300 UNITS/3 ML VIAL) SC SCH ×2 (08:44→21:09)
[2018-06-21] MEDS: Carvedilol 6.25 MG TAB PO SCH ×2 (08:44→16:45)
[2018-06-21] MEDS: Ferrous Sulfate 325 MG TAB PO SCH (08:44)
[2018-06-21] MEDS: Atorvastatin Calcium 20 MG TAB PO SCH (08:44)
[2018-06-21] MEDS: Furosemide 40 MG/4 ML VIAL SLOW IVP SCH (08:44)
[2018-06-21] MEDS ORDERED: Hydrochlorothiazide 25 MG TAB PO SCH (09:00)
[2018-06-21] MEDS ORDERED: Magnesium 2 GM/50 ML 2 GM in Premix Bag 1 BAG IVPB SCH (10:00)
[2018-06-21] MEDS ORDERED: Furosemide 40 MG TAB PO PRN (13:41)
[2018-06-21] MEDS ORDERED: Iopamidol 370 76% 100 ML VIAL ONE (14:29)
[2018-06-21] MEDS: hydrALAZINE 20 MG/ML VIAL SLOW IVP PRN (15:05)
--- NOTE | 2018-06-21 15:48 | ULT ---
Please note this dictated under the renal ultrasound header. POS: TPC
--- NOTE | 2018-06-21 15:48 | ULT ---
RENAL ULTRASOUND: HISTORY: Hypertension, difficult to control. FINDINGS: Real-time imaging of the right and left kidneys was performed. This exam is technically difficult du e to body habitus. The right kidney measures 13.1 cm and the left kidney measures 9.8 cm in size. N o signs of any cyst, mass or obstruction. The bladder region appears unremarkable. DOPPLER EVALUATION WITH SPECTRAL ANALYSIS: This exam is technically difficult on the right side. The highest velocity measurements that would b e obtained were peak systolic velocity measurements of 12 cm/s at the distal renal artery. The more proximal renal artery is never visualized. On the left side, renal artery velocity measurements are 166 cm/s. Again, the more proximal renal artery is not well visualized. Aortic velocities are also difficult to obtain with aortic velocities of 26 cm/s. The resistive index on the right is 0.67 and on the left 0.69. IMPRESSION: Technically difficult examination. There is a size discrepancy with the left kidney being smaller th an the right. Elevated velocity measurements in the visualized portion of the left renal artery. Th is raises the possibility of an underlying renal artery stenosis. In addition, the aortic velocities were very difficult to obtain and are reduced at 25 cm/s. Further evaluation with CT angiography wo uld probably be helpful in this case. POS: TPC
--- NOTE | 2018-06-21 16:14 | PRG ---
DATE OF SERVICE: 06/21/2018 SERVICE: Pulmonary Medicine. INTERVAL HISTORY: The patient is doing really well from respiratory standpoint. He is on room air. His eye has increasing and decreasing haziness. When he got out of bed and into a chair, he got worse transiently before improving. He denies any current fevers, chills, or overnight events. PHYSICAL EXAMINATION: VITAL SIGNS: Afebrile. Pulse 63, blood pressure 172/112, respirations 6, and saturation 100% on room air. GENERAL: The patient is awake and alert, in no apparent distress. LUNGS: Excellent air entry. No prolonged expiratory phase or wheezing is appreciated. HEART: Normal rate, regular. ABDOMEN: Soft, nontender, and nondistended. Bowel sounds are positive. MUSCULOSKELETAL: No cyanosis or clubbing. No pitting in the bilateral lower extremities. NEUROLOGIC: Grossly nonfocal. LABORATORY DATA: Creatinine 1.22 and stable. Basic metabolic profile is otherwise unremarkable. CBC is unremarkable. ASSESSMENT: 1. Hypertensive emergency. 2. Retinal detachment with left eye visual disturbance. 3. Obstructive sleep apnea, strongly suspected. 4. Chronic diastolic heart failure. DISCUSSION AND PLAN: The patient is doing absolutely fantastic from a cardiovascular standpoint. He is on multiple blood pressure agents and his blood pressures are now controlled off the Cardene drip. At this point, he is stable for transition out of the ICU, or discharge home. A secondary hypertension workup is underway. Assuming this is unremarkable, he can be considered for transition home soon. He has appropriate followup already scheduled with Ophthalmology. I will be seeing him in the outpatient setting to set him for a polysomnogram. We will arrange this as soon as possible. Job ID: [id number]
[2018-06-21] MEDS: cloNIDine 0.2 MG TAB PO PRN (16:45)
--- NOTE | 2018-06-21 16:58 | CT ---
CTA of the abdomen with IV contrast and Three-D reformatted imaging INDICATION: Concern for renal artery stenosis with hypertension FINDINGS: There are single renal arteries bilaterally. No hemodynamically significant stenosis is demonstrated. The right kidney measures 12.3 x 6.4 cm. The left kidney measures 12.9 x 6.1 cm. The celiac and SMA arteries are widely patent. The YUN is widely patent. No acute aortic stenosis, oc clusion or aneurysmal formation is demonstrated. The aortic bifurcation is patent. There are mild vascular calcifications involving the right common iliac artery. Lung bases are clear. There is layered gallstones within the gallbladder. No focal hepatic lesion is evident. The pancreas, adrenal glands and spleen are normal appearing. There is a mild amount of retained stool within the colon. There is a fat-containing umbilical hernia. There is scattered degenerative and osteoarthr itic change. IMPRESSION: 1. No hemodynamically significant stenosis involving the single renal arteries bilaterally. 2. Cholelithiasis 3. Mild amount of retained stool within the colon.
[2018-06-22 06:02] LABS: Anion Gap 14 mmol/L (10-20); BUN (Urea Nitrogen) 22 mg/dL (8.9-20.6); Calc. Creatinine Clearance 204 mL/min (70-130); Calcium 8.9 mg/dL (7.8-10.44); Carbon Dioxide 20 mmol/L (22-29); Chloride 104 mmol/L (98-107); Estimated GFR-MDRD 72; Glucose 84 mg/dL (70-105); Potassium 4.2 mmol/L (3.5-5.1); Sodium 134 mmol/L (136-145)
--- NOTE | 2018-06-22 06:43 | PDOC.FM ---
- Subjective Subjective: Patient was moved out of ICU yesterday. Seen at bedside this morning in no acute distress. No new concerns, patient notes continued loss of vision. No concerns from nursing - Objective MAR Reviewed: Yes Vital Signs & Weight: Vital Signs (12 hours) Temp Pulse Resp BP Pulse Ox 06/22/18 04:00 73 142/70 H 06/21/18 20:00 97.8 F 64 20 143/86 H 100 Weight Admit Weight 198.22 kg Weight 198.6 kg Most Recent Monitor Data Heart Rate from ECG 68 NIBP 213/112 NIBP BP-Mean 145 Respiration from ECG 17 SpO2 97 I&O: 06/20/18 06/21/18 06/22/18 06:59 06:59 06:59 Intake Total 1255 1721 660 Output Total 2950 8498 2150 Balance -1665 -8179 -2940 Result Diagrams: 06/20/18 04:07 06/22/18 05:07 Radiology Reviewed by me: Yes Radiology: Renal doppler shows possible left renal aa stenosis. Followup CTA WNL Phys Exam - Physical Examination Constitutional: NAD HEENT: moist MMs Neck: no JVD Respiratory: clear to auscultation bilateral Cardiovascular: RRR, no significant murmur Gastrointestinal: soft, non-tender, no distention pitting to mid tibia, improved from yesterday Neurological: moves all 4 limbs Psychiatric: normal affect, A&O x 3 Skin: no rash Dx/Plan (1) Bilateral retinal detachment Code(s): H33.23 - SEROUS RETINAL DETACHMENT, BILATERAL Status: Acute (2) Chronic hypertension Code(s): I10 - ESSENTIAL (PRIMARY) HYPERTENSION Status: Chronic (3) Hypertensive urgency Code(s): I16.0 - HYPERTENSIVE URGENCY Status: Resolved (4) Insulin dependent diabetes mellitus Code(s): E11.9 - TYPE 2 DIABETES MELLITUS WITHOUT COMPLICATIONS; Z79.4 - [facility] (CURRENT) USE OF INSULIN Status: Suspected (5) CARMELO (obstructive sleep apnea) Code(s): G47.33 - OBSTRUCTIVE SLEEP APNEA (ADULT) (PEDIATRIC) Status: Suspected - Plan Plan: 1. Bilateral retinal detachment - Recommendation was to fu outpatient w/ Dr Ayala 2. Hypertensive emergency, resolved 3. DM - well controlled ,A1c of 5.3 - continue home meds - consistent carb diet, achs accucheck 4. HTN - continues to need periodic PRN meds. Yesterday evening had multiple pressures greater than 200/100. Normal pressure for the past 12 hours. - Will increase HCTZ. Pt is at max dose of Losartan and his HR cant handle larger dose of beta esther. Would add Norvasc if needed. - Current work up for secondary cause negative thus far. Renin/aldosterone pending. Sleep study to be completed outpatient 5. CARMELO, suspected - will need outpatient study. This may be contributing as a secondary cause of resistant hypertension Dispo: currently stable and improving. Possibly ready to dc today if BP continues to be controlled. Addendum - Attending - Attending Attestation Date/Time: 06/23/18 3688 I personally evaluated the patient and discussed the management with Dr. Michelle on 06/22/2018 I agree with the History, Examination, Assessment and Plan documented above with any addition or exceptions noted below - Patient denies any complaints. Denies any LAMAR or SOB. Afebrile BP 170-190/80-100s. A/P: 1) HTN emergency- off cardene; continue to adjust BP meds for improved control. 2) DM- stable; continue current meds. 3) Malignant HTN - CTA of renal arteries negative for stenosis; aldosterone and renin labs pending.
[2018-06-22] MEDS: Hydrochlorothiazide 25 MG TAB PO SCH ×2 (09:21→20:42)
[2018-06-22] MEDS: Ferrous Sulfate 325 MG TAB PO SCH (09:21)
[2018-06-22] MEDS: Furosemide 40 MG/4 ML VIAL SLOW IVP SCH (09:21)
[2018-06-22] MEDS: Atorvastatin Calcium 20 MG TAB PO SCH (09:21)
[2018-06-22] MEDS: Carvedilol 6.25 MG TAB PO SCH ×2 (09:21→16:41)
[2018-06-22] MEDS: Losartan 25 MG TAB PO SCH (09:22)
[2018-06-22] MEDS: HumuLIN 70/30 (300 UNITS/3 ML VIAL) SC SCH ×2 (11:15→20:43)
[2018-06-22] MEDS: hydrALAZINE 20 MG/ML VIAL SLOW IVP PRN (16:39)
[2018-06-22] MEDS ORDERED: Amlodipine 10 MG TAB PO SCH (17:15)
[2018-06-22] MEDS: cloNIDine 0.2 MG TAB PO PRN (20:42)
[2018-06-23] MEDS: cloNIDine 0.2 MG TAB PO PRN (04:13)
--- NOTE | 2018-06-23 06:46 | PDOC.FM ---
- Subjective Subjective: Seen at bedside this morning resting comfortably. No new complaints. No acute events over night. - Objective MAR Reviewed: Yes Vital Signs & Weight: Vital Signs (12 hours) Temp Pulse Resp BP BP BP Pulse Ox 06/23/18 04:13 194/112 H 06/23/18 04:00 98.4 F 90 22 H 194/112 H 97 06/23/18 00:00 62 141/65 H 06/22/18 20:42 188/79 H 06/22/18 20:00 98.2 F 68 16 188/79 H 98 Weight Admit Weight 198.22 kg Weight 198.6 kg Most Recent Monitor Data Heart Rate from ECG 68 NIBP 213/112 NIBP BP-Mean 145 Respiration from ECG 17 SpO2 97 I&O: 06/21/18 06/22/18 06/23/18 06:59 06:59 06:59 Intake Total 1420 738 4597 Output Total 2750 2150 Balance -1029 -1490 1200 Result Diagrams: 06/20/18 04:07 06/22/18 05:07 Phys Exam - Physical Examination Constitutional: NAD HEENT: moist MMs Neck: no JVD Respiratory: clear to auscultation bilateral Cardiovascular: RRR, no significant murmur Gastrointestinal: soft, no distention 1+ pitting edema to knee b/l Neurological: non-focal, moves all 4 limbs Psychiatric: normal affect, A&O x 3 Skin: no rash Dx/Plan (1) Bilateral retinal detachment Code(s): H33.23 - SEROUS RETINAL DETACHMENT, BILATERAL Status: Acute (2) Chronic hypertension Code(s): I10 - ESSENTIAL (PRIMARY) HYPERTENSION Status: Chronic (3) Hypertensive urgency Code(s): I16.0 - HYPERTENSIVE URGENCY Status: Resolved (4) Insulin dependent diabetes mellitus Code(s): E11.9 - TYPE 2 DIABETES MELLITUS WITHOUT COMPLICATIONS; Z79.4 - [facility] (CURRENT) USE OF INSULIN Status: Suspected (5) CARMELO (obstructive sleep apnea) Code(s): G47.33 - OBSTRUCTIVE SLEEP APNEA (ADULT) (PEDIATRIC) Status: Suspected (6) Diabetic foot ulcer Code(s): E11.621 - TYPE 2 DIABETES MELLITUS WITH FOOT ULCER; L97.509 - NON- PRESSURE CHRONIC ULCER OTH PRT UNSP FOOT W UNSP SEVERITY Status: Chronic - Plan Plan: 1. Bilateral retinal detachment - Recommendation was to fu outpatient w/ Dr Ayala 2. Hypertensive emergency, resolved 3. DM - well controlled ,A1c of 5.3 - continue home meds - consistent carb diet, achs accucheck 4. HTN - continues to have labile blood pressure will add norvasc today. - Current work up for secondary cause negative thus far. Renin/aldosterone pending. Sleep study to be completed outpatient 5. CARMELO, suspected - will need outpatient study. This may be contributing as a secondary cause of resistant hypertension 6. Diabetic foot wound - wound care seeing pt. Will need to be continued outpatient. does not appear to be acutely infected. Dispo: currently stable. Possibly ready to dc today if BP continues to be controlled. Addendum - Attending - Attending Attestation Date/Time: 06/23/18 8782 I personally evaluated the patient and discussed the management with Dr. Michelle. I agree with the History, Examination, Assessment and Plan documented above with any addition or exceptions noted below. Patient here for hypertensive emergency and retinal detachments with vision loss that is somewhat improving. He has been evaluated by Ophtho and they plan for further workup outpatient. His BP continues to be labile and uncontrolled. He most certainly has CARMELO that is likely a contributing factor. We are escalating therapy today, and will change Norvasc to Procardia to see if we get better control. Will see if we can start patient on CPAP therapy while here and see if that results in improvement. Labs related to refractory HTN pending, but workup negative for RA stenosis. Consider Aldactone if not controlled with Procardia. Renal function stable.
[2018-06-23] MEDS ORDERED: Amlodipine 10 MG TAB PO SCH (09:00)
[2018-06-23] MEDS: Carvedilol 6.25 MG TAB PO SCH (09:08)
[2018-06-23] MEDS: Atorvastatin Calcium 20 MG TAB PO SCH (09:08)
[2018-06-23] MEDS: Furosemide 40 MG/4 ML VIAL SLOW IVP SCH ×2 (09:08→11:23)
[2018-06-23] MEDS: Losartan 25 MG TAB PO SCH (09:09)
[2018-06-23] MEDS: Ferrous Sulfate 325 MG TAB PO SCH (09:09)
[2018-06-23] MEDS: Hydrochlorothiazide 25 MG TAB PO SCH (09:09)
[2018-06-23] MEDS: HumuLIN 70/30 (300 UNITS/3 ML VIAL) SC SCH (09:10)
[2018-06-23] MEDS ORDERED: NIFEdipine XL 60 MG TAB PO SCH (10:00)
[2018-06-23] MEDS: HumaLOG 300 UNITS/3 ML VIAL SC PRN (10:54)
[2018-06-23 12:51] VITALS: BP 124/59; TEMP 99
[2018-06-23 13:20] VITALS: BMI 55.5
--- NOTE | 2018-06-24 00:50 | DIS ---
DATE OF ADMISSION: 06/18/2018 DATE OF DISCHARGE: 06/23/2018 ADMITTING ATTENDING: Manuel Bowens MD DISCHARGE ATTENDING: Smith Sanders MD. RESIDENT: Adán Michelle DO CONSULTS: 1. Critical care edger machine helper, Dr. Hermes Lynch. 2. Ophthalmology, Dr. Elmo Ayala. PROCEDURES: 1. Brain CT on 06/18, findings, no CT evidence for acute intracranial process. 2. Facial bone CT on 06/18, findings, no CT evidence of facial or orbital wall fracture. 3. Chest x-ray on 06/18, findings, heart size borderline. The lungs expand without focal areas of consolidation, pneumothorax, or kolby pulmonary edema. 4. Echocardiogram on 06/19, findings, the EF 55% to 60%, normal left ventricle, mild left ventricular hypertrophy, and impaired relaxation compatible with diastolic dysfunction. 5. Renal ultrasound on 06/21, size discrepancy of left kidney being smaller than the right. Elevated velocity in the main part of the left renal artery, concerning for possible renal artery stenosis. The aortic values were difficult to obtain, were reduced to 25 cm. 6. CTA abdomen and pelvis, findings, no hemodynamically significant stenosis involving the renal arteries bilaterally, incidental cholelithiasis. ADMITTING DIAGNOSES: 1. Hypertensive emergency. 2. Bilateral retinal detachments. SECONDARY DIAGNOSES: 1. Type 2 diabetes. 2. Suspected obstructive sleep apnea. 3. Chronic diabetic foot ulcer on left foot. 4. Chronic hypertension. DISCHARGE MEDICATIONS: 1. Losartan 100 mg p.o. daily. 2. Lipitor 20 mg p.o. daily. 3. Insulin NPH. 4. Novolin 70/30, 30 units subcu b.i.d. 5. Coreg 6.25 mg p.o. daily. 6. Lasix 40 mg p.o. daily p.r.n. edema. 7. Hydrochlorothiazide 25 mg p.o. b.i.d. 8. Procardia XL 60 mg p.o. daily. HOSPITAL SUMMARY: This is a 42-year-old male who was admitted from the emergency room to the ICU with a diagnoses of hypertensive emergency with concern for retinal detachment was made in the emergency room following a [id number] ultrasound. The patient was started on a Cardene drip and admitted to the ICU. While on Cardene , the patient's blood pressure normalized appropriately without complication. The patient was seen on the 2nd day of admission by Ophthalmology, who conducted a thorough dilated eye exam and determined that the patient likely had bilateral retinal detachments with the left side likely involving part of the macula. It was recommended at that time, the patient followup with Dr. Ayala in the outpatient setting for definitive treatment following discharge from the hospital. Regarding the hypertension, the patient was unable to be weaned from Cardene for several days. He was started on multiple p.o. antihypertensives in order to get control while also on Cardene. By the 3rd day of admission, the patient was able to be titrated off Cardene and was started on all p.o. antihypertensives with p.r.n. clonidine and p.r.n. IV antihypertensives. Due to the difficulty controlling the patient's hypertension, workup for secondary hypertensive causes was initiated. The patient was ruled out for renal artery stenosis. Renin activity level and aldosterone level were drawn and are pending at this time. It was also recommended based on the patient's body habitus and witnessed snoring episodes. The patient had a formal sleep study to evaluate for sleep apnea as a secondary cause of hypertension. On the day of discharge, the patient's blood pressure was reasonably controlled, blood pressures typically in the 140 systolic range. Regarding diabetic foot ulcer, the patient has had this for approximately 2 years, and prior to moving to [facility] from [place], was being seen by Wound Care in the [facility]. At no point did the wound appeared to be acutely infected. Wound care did evaluate and address the wound while inpatient. The patient is without outpatient followup for continued wound care. Regarding diabetes, the patient is well controlled at home with his regimen of 70/30 and diet. His A1c on this hospitalization is 5.3. He generally had well controlled blood glucose and the patient is doing better. DISCHARGE INSTRUCTIONS: 1. Location: Home. 2. Diet: Low carb. 3. Activity level: Ad dora. 4. Followup: Follow up with Dr. Adán Michelle within 1 week, with Dr. Ayala within 1 week, and with Dr. Lynch for sleep study within 1 week. Job ID: [id number] MTDD
[2018-06-24] MEDS ORDERED: Furosemide 40 MG TAB PO SCH (09:00)
[2018-06-24] MEDS ORDERED: NIFEdipine XL 60 MG TAB PO SCH (09:00)
== END 2018-06-23 15:47 | disposition home or self-care (01) | DRG 125 ==
LOC: ERS 14:06 → CCU 17:04 → 2NO 06-21 17:37
PROVIDERS: ADMIT Family Medicine; ATTEND Family Medicine
DX: E11.3522 Type 2 diabetes mellitus with proliferative diabetic retinopathy with traction retinal detachment involving the macula, left eye (principal); I16.1 Hypertensive emergency; I50.32 Chronic diastolic (congestive) heart failure; Z68.43 Body mass index [BMI] 50.0-59.9, adult; G47.33 Obstructive sleep apnea (adult) (pediatric); E11.621 Type 2 diabetes mellitus with foot ulcer; D64.9 Anemia, unspecified; I11.0 Hypertensive heart disease with heart failure; L97.529 Non-pressure chronic ulcer of other part of left foot with unspecified severity; E66.01 Morbid (severe) obesity due to excess calories; E78.5 Hyperlipidemia, unspecified; E87.70 Fluid overload, unspecified; E83.42 Hypomagnesemia; Z79.899 Other long term (current) drug therapy; Z79.4 Long term (current) use of insulin
CPT/HCPCS: 36415; 36416; 70450; 70486; 71045; 74175; 76700; 76770; 80048; 80053; 80061; 82088; 82728; 83036; 83540; 83550; 83735; 84100; 84244; 84443; 84484; 85025; 93005; 93306; 96365; 96375; J0360; J1815; J1940; J3475; J7050; Q9967

== ENCOUNTER 2018-08-11 07:47 | Day surgery (SDC) | payer OTHER ==
[2018-08-10 10:21] VITALS: BMI 44.9
[2018-08-11] MEDS ORDERED: Phenylephrine 2.5% Ophth Soln 5 ML BOT ONE (08:53)
[2018-08-11] MEDS ORDERED: Cyclopentolate 1% Opth Drop 2 ML BOT ONE (08:53)
[2018-08-11] MEDS ORDERED: Fentanyl 100 MCG/2 ML VIAL ONE (11:05)
[2018-08-11] MEDS ORDERED: Midazolam HCl 2 mg/2 ml Vial ONE (11:05)
[2018-08-11] MEDS ORDERED: EPINEPHrine 0.3 MG, Dextrose 50% 3 ML in Ophthalmic Irrigation Solution 500 ML FS SCH (11:26)
[2018-08-11] MEDS ORDERED: Rocuronium Bromide 10 MG/ML (10ML VIAL) ONE (16:21)
[2018-08-11] MEDS ORDERED: Bupivacaine 0.75% 10 ML AMP ONE (16:21)
[2018-08-11] MEDS ORDERED: PROPOFOL 200 MG/20 ML VIAL ONE (16:21)
[2018-08-11] MEDS ORDERED: Ondansetron PF 4 MG/2 ML Vial ONE (16:21)
[2018-08-11] MEDS ORDERED: Glycopyrrolate 0.2 MG/ML 5 ML SYRINGE ONE (16:21)
[2018-08-11] MEDS ORDERED: Lidocaine 1% PF 5 ML VIAL ONE ×2 (16:21)
[2018-08-11] MEDS ORDERED: Triamcinolone 40 MG/ML VIAL ONE (16:21)
[2018-08-11] MEDS ORDERED: CEFAZOLIN 1 GM VIAL ONE (16:21)
[2018-08-11] MEDS ORDERED: Maxitrol 0.1% Opth Oint 3.5 GM TUBE ONE (16:21)
[2018-08-11] MEDS ORDERED: ePHEDrine 50 MG/ML VIAL ONE (16:21)
[2018-08-11] MEDS ORDERED: Lidocaine 4% PF 5 ML AMP ONE (16:21)
--- NOTE | 2018-08-11 20:30 | OP ---
DATE OF PROCEDURE: 08/11/2018 PREOPERATIVE DIAGNOSIS: Rhegmatogenous and tractional retinal detachment, right eye. POSTOPERATIVE DIAGNOSIS: Rhegmatogenous and tractional retinal detachment, right eye. PROCEDURES PERFORMED: Pars plana vitrectomy and retinal detachment repair, right eye. ANESTHESIA: General endotracheal anesthesia. COMPLICATIONS: None. PROCEDURE IN DETAIL: The patient was identified in the preoperative holding area. Appropriate informed consent for the planned surgical procedure on the right eye had been obtained. The patient was transported to the operative suite, where appropriate cardiopulmonary monitoring was established. Local anesthesia was obtained using retrobulbar modified Van Lint lid block using 50:50 mixture of 4% lidocaine and 0.75% bupivacaine. The patient was prepped and draped in usual sterile manner for ophthalmic surgery of right eye. Lid speculum was placed in the right eye. A 25-gauge trocar was placed through the conjunctiva and sclera superotemporally, inferotemporally, and supranasally. Infusion line was placed inferotemporally. Light pipe and vitreous cutter were inserted into the eye. Core vitrectomy was performed. Proliferation was removed from the retinal surface, which was noted to be completely detached. Several pre-existing holes were noted within the retina. A drained retinotomy was created nasal to the nerve. Complete air-fluid exchange was performed and 10 minutes being allowed for fluid to drain posteriorly. Panretinal photocoagulation was placed in all non-macular areas of the retina. Silicone oil was infused into the eye. Trocars were removed, and sclerotomy was suture closed. Retrobulbar Kenalog and subconjunctival Ancef were placed. Antibiotic ointment was placed. The eye was patched and shield. The patient was taken to the postoperative care unit in good condition, having suffered no immediate perioperative complications. The patient was instructed to keep patch on, avoid lifting or bending, avoid flat or back positioning, followup appointment with Dr. Ayala. Job ID: [id number]
== END 2018-08-11 15:30 | disposition home or self-care (01) ==
LOC: SDC 07:47
PROVIDERS: ATTEND Ophthalmology Retina Specialist
PROC: 085E3ZZ Destruction of Right Retina, Percutaneous Approach (ICD-10-PCS; principal; 2018-08-11)
PROC: 08T43ZZ Resection of Right Vitreous, Percutaneous Approach (ICD-10-PCS; principal; 2018-08-11)
DX: H33.001 Unspecified retinal detachment with retinal break, right eye (principal); H33.41 Traction detachment of retina, right eye; E11.9 Type 2 diabetes mellitus without complications; I10 Essential (primary) hypertension; E66.9 Obesity, unspecified; Z68.41 Body mass index [BMI] 40.0-44.9, adult; Z88.2 Allergy status to sulfonamides; Z79.4 Long term (current) use of insulin; Z79.899 Other long term (current) drug therapy
CPT/HCPCS: 36416; C1814; J0171; J2250; J3010

== ENCOUNTER 2018-10-06 11:22 | Day surgery (SDC) | payer OTHER ==
[~2018-10-06 11:22] MED LIST: EPINEPHrine 0.3 MG, Dextrose 50% 3 ML in Ophthalmic Irrigation Solution 500 ML IVP SCH
[2018-10-06] MEDS ORDERED: Phenylephrine 2.5% Ophth Soln 5 ML BOT ONE ×2 (11:45→11:46)
[2018-10-06] MEDS ORDERED: Cyclopentolate 1% Opth Drop 2 ML BOT ONE ×3 (11:45→11:46)
[2018-10-06] MEDS ORDERED: Fentanyl 100 MCG/2 ML VIAL ONE (12:37)
--- NOTE | 2018-10-06 19:25 | OP ---
DATE OF PROCEDURE: 10/06/2018 PREOPERATIVE DIAGNOSIS: Tractional retinal detachment, left eye. POSTOPERATIVE DIAGNOSIS: Tractional retinal detachment, left eye. PROCEDURES PERFORMED: Pars plana vitrectomy, complex renal detachment repair, left eye. ANESTHESIA: General endotracheal anesthesia. COMPLICATIONS: None. PROCEDURE IN DETAIL: The patient was identified in preoperative holding area. Appropriate informed consent for the planned surgical procedure on the left eye had been obtained. The patient was transported to the operative suite. Appropriate cardiopulmonary monitoring was established. General endotracheal anesthesia was initiated. Local anesthesia was obtained using retrobulbar block. The patient was prepped and draped in usual sterile manner for ophthalmic surgery on the left eye. Lid speculum was placed in the left eye. A 25-gauge trocar was placed in the conjunctivae and sclerae superotemporally, inferotemporally, and supranasally. Infusion line was placed inferotemporally. Light pipe vitreous cutter was inserted to the eye. Core vitrectomy was performed. A total retinal detachment was identified. Multiple areas of traction on the retinal surface were noted with dense proliferation along the supratemporal and inferotemporal arcades. This was carefully dissected from the retinal surface, and several holes in the retina were visualized at this time. Subretinal fluid was very thick and drained from underneath the retina using passive and active aspiration. Complete air-fluid exchange was performed, and fluid was drained from underneath the right flap. Parenteral photocoagulation was placed into all nonmacular areas of the retina with special emphasis on the areas of previous traction. Silicone oil was infused into the eye through a 20-gauge superior sclerotomy. All sclerotomy suture closed with 7-0 Vicryl suture. Conjunctiva was closed with 6-0 plain gut suture. Retrobulbar Kenalog and sequential Ancef were placed. Atropine antibiotic ointment was placed. The eye was patched and shielded. The patient was awakened, taken to postoperative recovery unit in good condition having suffered no immediate perioperative complications. The patient advised to avoid flat and back positioning. Call for pain not relieved by Tylenol. Followup appointment with Dr. Ayala. Job ID: [id number]
== END 2018-10-06 16:00 | disposition home or self-care (01) ==
LOC: SDC 11:22
PROVIDERS: ATTEND Ophthalmology Retina Specialist
PROC: 08T53ZZ Resection of Left Vitreous, Percutaneous Approach (ICD-10-PCS; principal; 2018-10-06)
DX: H33.42 Traction detachment of retina, left eye (principal); Z88.8 Allergy status to other drugs, medicaments and biological substances
CPT/HCPCS: 36416; C1814; J3010

== ENCOUNTER 2019-02-02 07:43 | Day surgery (SDC) | payer OTHER ==
[2019-02-01 10:27] VITALS: BMI 47.5
[~2019-02-02 07:43] MED LIST changes: +EPINEPHrine 0.3 MG, Dextrose 50% 3 ML in Ophthalmic Irrigation Solution 500 ML IRR SCH; -EPINEPHrine 0.3 MG, Dextrose 50% 3 ML in Ophthalmic Irrigation Solution 500 ML IVP SCH
[2019-02-02] MEDS ORDERED: Cyclopentolate 1% Opth Drop 2 ML BOT ONE (08:19)
[2019-02-02] MEDS ORDERED: Phenylephrine 2.5% Ophth Soln 5 ML BOT ONE (08:19)
[2019-02-02] MEDS ORDERED: Fentanyl 100 MCG/2 ML VIAL ONE (09:03)
[2019-02-02] MEDS ORDERED: SUGAMMADEX SODIUM 500 MG/5 ML VIAL ONE (09:10)
[2019-02-02] MEDS ORDERED: Albuterol Sulfate HFA (OR ONLY) ONE (09:52)
[2019-02-02] MEDS ORDERED: Labetalol HCl 100 MG/20 ML VIAL ONE (11:17)
[2019-02-02] MEDS ORDERED: hydrALAZINE 20 MG/ML VIAL ONE (12:01)
[2019-02-02] MEDS ORDERED: CEFAZOLIN 1 GM VIAL ONE (13:34)
[2019-02-02] MEDS ORDERED: PROPOFOL 200 MG/20 ML VIAL ONE (13:34)
[2019-02-02] MEDS ORDERED: Succinylcholine Chloride 20 MG/ML 10 ml SYRINGE FS ONE (13:34)
[2019-02-02] MEDS ORDERED: diphenhydrAMINE 50 MG/ML VIAL ONE (13:34)
[2019-02-02] MEDS ORDERED: Lidocaine 1% PF 5 ML VIAL ONE (13:34)
[2019-02-02] MEDS ORDERED: Rocuronium Bromide 10 MG/ML (10ML VIAL) ONE (13:34)
[2019-02-02] MEDS ORDERED: Triamcinolone 40 MG/ML VIAL ONE (13:34)
[2019-02-02] MEDS ORDERED: Maxitrol 0.1% Opth Oint 3.5 GM TUBE ONE (13:34)
[2019-02-02] MEDS ORDERED: Ondansetron PF 4 MG/2 ML Vial ONE (13:34)
[2019-02-02] MEDS ORDERED: Bupivacaine PF 0.75% SDV 10 ML ONE (13:34)
[2019-02-02] MEDS ORDERED: Lidocaine 4% PF 5 ML AMP ONE (13:34)
[2019-02-02] MEDS ORDERED: Dextrose 50% Abboject 50 ML SYRINGE ONE (13:36)
--- NOTE | 2019-02-02 14:44 | OP ---
DATE OF PROCEDURE: 02/02/2019 PREOPERATIVE DIAGNOSIS: Vitreous opacification. POSTOPERATIVE DIAGNOSIS: Vitreous opacification. PROCEDURE PERFORMED: Pars plana vitrectomy, membrane peel, right eye. ANESTHESIA: General endotracheal anesthesia. DESCRIPTION OF PROCEDURE: The patient identified in the preoperative holding area. Appropriate informed consent for the planned surgical procedure on the right eye had been obtained. The patient was transported to the operative suite. Appropriate cardiopulmonary monitoring was established. General endotracheal anesthesia was initiated. Local anesthesia was obtained using retrobulbar modified Van Lint lid block using 50:50 mixture of 4% lidocaine and 0.75% bupivacaine. The patient was prepped and draped in the usual sterile manner for ophthalmic surgery of the right eye. Lid speculum was placed in the right eye. A 25-gauge trocar was placed in conjunctiva and sclera superonasally and inferotemporally. 20-gauge sclerotomy was created superotemporally. Viscous fluid removal device was inserted to the eye. Silicone oil was removed from the eye. Sclerotomy suture closed. Light pipe vitreous cutter was inserted to the eye. Residual membranes were peeled and removed, and remaining sclerotomy was closed with 6-0 plain gut suture. Retrobulbar Kenalog and subconjunctival Ancef were placed. Antibiotic ointment was placed. Eye was patched and shielded. The patient was awakened, taken to postoperative recovery unit in good condition, having suffered no immediate perioperative complications. The patient was instructed to keep patch and shield on, avoid lifting or bending, followup appointment with Dr. Ayala. Job ID: [id number]
== END 2019-02-02 14:15 | disposition home or self-care (01) ==
LOC: SDC 07:43
PROVIDERS: ATTEND Ophthalmology Retina Specialist
PROC: 08NE3ZZ Release Right Retina, Percutaneous Approach (ICD-10-PCS; principal; 2019-02-02)
PROC: 08T43ZZ Resection of Right Vitreous, Percutaneous Approach (ICD-10-PCS; principal; 2019-02-02)
DX: H35.371 Puckering of macula, right eye (principal); H43.391 Other vitreous opacities, right eye; H40.9 Unspecified glaucoma; Z79.4 Long term (current) use of insulin; Z79.899 Other long term (current) drug therapy; Z88.2 Allergy status to sulfonamides
CPT/HCPCS: 36416; J0171; J0360; J0690; J1200; J2001; J2405; J2704; J3010; J3301; J3490

== ENCOUNTER 2019-02-23 11:02 | Emergency (ER) | payer OTHER, SELFPAY ==
--- NOTE | 2019-02-23 12:11 | RAD ---
XR Foot Lt 3 View STANDARD HISTORY: Plantar foot ulcer. COMPARISON: None. FINDINGS: A soft tissue ulcer is seen on the plantar aspect of the foot beneath the distal calcaneus. There is diffuse soft tissue swelling of the foot. 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 There is no plain film evidence for osteomyelitis. IMPRESSION: No plain film evidence of osteomyelitis.
[2019-02-23 12:18] LABS: #Basophils 0.1 thou/uL (0.0-0.2); #Eosinphils 0.1 thou/uL (0.0-0.7); #Lymphocytes 2.4 thou/uL (1.20-3.40); #Monocytes 0.6 thou/uL (0.11-0.59); #Neutrophils 3.4 thou/uL (1.40-6.50); %Basophils 0.8 % (0.0-1.0); %Eosinophils 1.9 % (0.0-10.0); %Lymphocytes 36.6 % (21.0-51.0); %Monocytes 9.6 % (0.0-10.0); %Neutrophils 51.1 % (42.0-75.0); Hemoglobin 9.2 g/dL (14.0-18.0); Mean Corpuscular HGB CONC 31.6 g/dL (32.0-36.0); Mean Corpuscular Hemoglobin 28.7 pg (27.0-31.0); Mean Corpuscular Volume 90.9 fL (78.0-98.0); Mean Platelet Volume 7.7 fL (7.4-10.4); Platelet Count 341 thou/uL (130-400); RBC Distribution Width 12.7 % (11.5-14.5); White Blood Cell (WBC) Count 6.6 thou/uL (4.8-10.8)
[2019-02-23 12:37] LABS: ALT (SGPT) 14 U/L (8-55); AST (SGOT) 13 U/L (5-34); Albumin 3.6 g/dL (3.5-5.0); Alkaline Phosphatase 57 U/L (40-110); Anion Gap 12 mmol/L (10-20); BUN (Urea Nitrogen) 26 mg/dL (8.9-20.6); Bilirubin, Total 0.7 mg/dL (0.2-1.2); Calc. Creatinine Clearance 0 mL/min (70-130); Calcium 8.7 mg/dL (7.8-10.44); Carbon Dioxide 23 mmol/L (22-29); Chloride 107 mmol/L (98-107); Estimated GFR-MDRD 63; Globulin 3.9 g/dL (2.4-3.5); Glucose 98 mg/dL (70-105); Potassium 4.9 mmol/L (3.5-5.1); Protein, Total 7.5 g/dL (6.0-8.3); Sodium 137 mmol/L (136-145)
[2019-02-23] MEDS ORDERED: traMADol HCl 50 MG TAB ONE (12:55)
== END 2019-02-23 13:09 | disposition home or self-care (01) ==
LOC: ERS 11:02
DX: E11.621 Type 2 diabetes mellitus with foot ulcer (principal); L97.529 Non-pressure chronic ulcer of other part of left foot with unspecified severity; I10 Essential (primary) hypertension; E78.5 Hyperlipidemia, unspecified; Z79.4 Long term (current) use of insulin; Z79.899 Other long term (current) drug therapy
CPT/HCPCS: 36415; 80053; 83605; 85025

== ENCOUNTER 2020-11-05 07:57 | Outpatient (CLI) | payer OTHER ==
[2020-11-05 20:12] LABS: SARS-CoV-2 PCR by NAA Not Detected (NotDetected)
== END 2020-11-05 07:58 | disposition home or self-care (01) ==
LOC: LABBT 07:57
PROVIDERS: ATTEND Ophthalmology Retina Specialist
DX: Z01.812 Encounter for preprocedural laboratory examination (principal); H43.392 Other vitreous opacities, left eye; Z20.822 Contact with and (suspected) exposure to COVID-19
CPT/HCPCS: U0003; U0005

== ENCOUNTER 2020-11-07 09:29 | Day surgery (SDC) | payer OTHER ==
[2020-11-06 15:06] VITALS: BMI 46.1
[~2020-11-07 09:29] MED LIST changes: +Cyclopentolate 1% Opth Drop 2 ML BOT FS SCH; +EPINEPHrine 0.3 MG in Ophthalmic Irrigation Solution 500 ML IRR SCH; -EPINEPHrine 0.3 MG, Dextrose 50% 3 ML in Ophthalmic Irrigation Solution 500 ML IRR SCH; +Fentanyl 100 MCG/2 ML VIAL ONE; +Midazolam HCl 2 mg/2 ml Vial ONE; +PROPOFOL 20 ML ONE; +Phenylephrine 2.5% Ophth Soln 5 ML BOT FS SCH
[2020-11-07] MEDS ORDERED: Cyclopentolate 1% Opth Drop 2 ML BOT ONE (09:36)
[2020-11-07] MEDS ORDERED: Phenylephrine 2.5% Ophth Soln 5 ML BOT ONE (09:36)
[2020-11-07] MEDS ORDERED: Lidocaine 4% PF 5 ML AMP ONE (09:42)
[2020-11-07] MEDS ORDERED: CEFAZOLIN 1 GM VIAL ONE (09:42)
[2020-11-07] MEDS ORDERED: Maxitrol 0.1% Opth Oint 3.5 GM TUBE ONE (09:42)
[2020-11-07] MEDS ORDERED: Triamcinolone 40 MG/ML VIAL ONE (09:42)
[2020-11-07] MEDS ORDERED: Lidocaine 1% PF 5 ML VIAL ONE (09:42)
[2020-11-07] MEDS ORDERED: Bupivacaine PF 0.75% SDV 10 ML ONE (09:42)
== END 2020-11-07 11:55 | disposition home or self-care (01) ==
LOC: SDC 09:29
PROVIDERS: ATTEND Ophthalmology Retina Specialist
PROC: 08T53ZZ Resection of Left Vitreous, Percutaneous Approach (ICD-10-PCS; principal; 2020-11-07)
PROC: 08NF3ZZ Release Left Retina, Percutaneous Approach (ICD-10-PCS; principal; 2020-11-07)
DX: H43.392 Other vitreous opacities, left eye (principal); Z79.4 Long term (current) use of insulin; Z79.899 Other long term (current) drug therapy; Z88.2 Allergy status to sulfonamides; Z98.41 Cataract extraction status, right eye; Z98.42 Cataract extraction status, left eye
CPT/HCPCS: J0171; J0690; J2250; J2704; J3010; J3301; J3490

== ENCOUNTER 2021-01-20 08:01 | Outpatient (CLI) | payer OTHER ==
[2021-01-20 21:59] LABS: SARS-CoV-2 PCR by NAA Not Detected (NotDetected)
== END 2021-01-20 08:02 | disposition home or self-care (01) ==
LOC: LABBT 08:01
PROVIDERS: ATTEND Ophthalmology Retina Specialist
DX: Z01.812 Encounter for preprocedural laboratory examination (principal); H40.9 Unspecified glaucoma; Z20.822 Contact with and (suspected) exposure to COVID-19
CPT/HCPCS: U0003; U0005

== ENCOUNTER 2021-01-23 07:21 | Day surgery (SDC) | payer OTHER ==
[2021-01-21 13:07] VITALS: BMI 48.1
[~2021-01-23 07:21] MED LIST changes: -Cyclopentolate 1% Opth Drop 2 ML BOT FS SCH; -Fentanyl 100 MCG/2 ML VIAL ONE; -Midazolam HCl 2 mg/2 ml Vial ONE; -PROPOFOL 20 ML ONE; -Phenylephrine 2.5% Ophth Soln 5 ML BOT FS SCH
[2021-01-23] MEDS ORDERED: Cyclopentolate 1% Opth Drop 2 ML BOT ONE (07:41)
[2021-01-23] MEDS ORDERED: Phenylephrine 2.5% Ophth Soln 5 ML BOT ONE (07:41)
[2021-01-23] MEDS ORDERED: PROPOFOL 20 ML ONE (08:23)
[2021-01-23] MEDS ORDERED: Bupivacaine PF 0.75% SDV 10 ML ONE (08:50)
[2021-01-23] MEDS ORDERED: Maxitrol 0.1% Opth Oint 3.5 GM TUBE ONE (08:50)
[2021-01-23] MEDS ORDERED: Triamcinolone 40 MG/ML VIAL ONE (08:50)
[2021-01-23] MEDS ORDERED: Lidocaine 4% PF 5 ML AMP ONE (08:50)
[2021-01-23] MEDS ORDERED: CEFAZOLIN 1 GM VIAL ONE (08:50)
[2021-01-23] MEDS ORDERED: Lidocaine 1% PF 5 ML VIAL ONE (08:50)
== END 2021-01-23 10:40 | disposition home or self-care (01) ==
LOC: SDC 07:21
PROVIDERS: ATTEND Ophthalmology Retina Specialist
PROC: 08133J4 Bypass Left Anterior Chamber to Sclera with Synthetic Substitute, Percutaneous Approach (ICD-10-PCS; principal; 2021-01-23)
PROC: 08T53ZZ Resection of Left Vitreous, Percutaneous Approach (ICD-10-PCS; principal; 2021-01-23)
PROC: 08NF3ZZ Release Left Retina, Percutaneous Approach (ICD-10-PCS; principal; 2021-01-23)
DX: H40.2220 Chronic angle-closure glaucoma, left eye, stage unspecified (principal); Z79.4 Long term (current) use of insulin; Z79.899 Other long term (current) drug therapy; Z98.41 Cataract extraction status, right eye; Z98.42 Cataract extraction status, left eye
CPT/HCPCS: C1762; J0171; J0690; J2704; J3301; J3490; L8612

== ENCOUNTER 2021-04-25 16:19 | Emergency (ER) | payer OTHER ==
[2021-04-25] MEDS ORDERED: Lidocaine 1% (PF) 30 ML VIAL ONE (16:43)
== END 2021-04-25 17:30 | disposition home or self-care (01) ==
LOC: ERS 16:19
DX: S10.95XA Superficial foreign body of unspecified part of neck, initial encounter (principal); L02.11 Cutaneous abscess of neck; L03.221 Cellulitis of neck; E78.5 Hyperlipidemia, unspecified; I10 Essential (primary) hypertension; E11.9 Type 2 diabetes mellitus without complications; X58.XXXA Exposure to other specified factors, initial encounter
CPT/HCPCS: 10060; J2001

== ENCOUNTER 2021-09-13 21:55 | Inpatient (IN) | payer OTHER, SELFPAY ==
[2021-09-14 00:09] LABS: Bacteria/HPF None Seen HPF (None Seen); Bilirubin Negative (Negative); Blood, Urine Negative (Negative); Clarity Clear (Clear); Glucose, Urine (Dipstick) Normal (Negative); Ketone, Urine Negative (Negative); Leukocyte Negative Leu/uL (Negative); Nitrite Negative (Negative); Protein, Urine (Dipstick) 200 mg/dL (Neg-Trace); RBC/HPF 0-3 HPF (0-3); Specific Gravity, Urine 1.013 (1.002-1.036); Squamous Epithelial None Seen HPF (0-3); Urobilinogen Normal mg/dL (Less than 2); WBC/HPF 0-3 HPF (0-3); pH, Urine 5.5 (5.0-9.0)
[2021-09-14] MEDS ORDERED: hydrALAZINE 20 MG/ML VIAL ONE (01:22)
[2021-09-14 02:00] LABS: #Basophils 0.1 thou/uL (0.0-0.2); #Eosinphils 0.2 thou/uL (0.0-0.7); #Monocytes 0.8 thou/uL (0.11-0.59); #Neutrophils 6.5 thou/uL (1.40-6.50); %Basophils 1.1 % (0.0-1.0); %Eosinophils 1.8 % (0.0-10.0); %Lymphocytes 28.5 % (21.0-51.0); %Monocytes 7.5 % (0.0-10.0); %Neutrophils 61.1 % (42.0-75.0); Hemoglobin 11.1 g/dL (14.0-18.0); Mean Corpuscular HGB CONC 32.7 g/dL (32.0-36.0); Mean Corpuscular Hemoglobin 30.4 pg (27.0-31.0); Mean Platelet Volume 7.7 fL (7.4-10.4); Platelet Count 293 thou/uL (130-400); RBC Distribution Width 11.2 % (11.5-14.5); Red Blood Cell (RBC) Count 3.66 mill/uL (4.70-6.10); White Blood Cell (WBC) Count 10.6 thou/uL (4.8-10.8)
[2021-09-14 02:21] LABS: ALT (SGPT) 15 U/L (8-55); AST (SGOT) 13 U/L (5-34); Albumin 3.9 g/dL (3.5-5.0); Alkaline Phosphatase 41 U/L (40-110); Anion Gap 12 mmol/L (10-20); BUN (Urea Nitrogen) 23 mg/dL (8.9-20.6); Bilirubin, Total 1.1 mg/dL (0.2-1.2); Calc. Creatinine Clearance 0 mL/min (70-130); Calcium 9.2 mg/dL (7.8-10.44); Carbon Dioxide 24 mmol/L (22-29); Chloride 103 mmol/L (98-107); Estimated GFR 52; Globulin 3.8 g/dL (2.4-3.5); Glucose 148 mg/dL (70-105); Potassium 4.4 mmol/L (3.5-5.1); Protein, Total 7.7 g/dL (6.0-8.3); Sodium 135 mmol/L (136-145)
[2021-09-14] MEDS ORDERED: Labetalol HCl 100 MG/20 ML VIAL ONE (03:20)
[2021-09-14] MEDS ORDERED: Diltiazem 125 MG/25 ML ONE (05:06)
[2021-09-14] MEDS ORDERED: niCARdipine 25 MG/10 ML VIAL ONE ×2 (05:09→05:10)
[2021-09-14] MEDS ORDERED: Ketorolac Tromethamine 30 MG/ML VIAL ONE (06:34)
[2021-09-14 07:01] LABS: SARS-CoV-2 NAA Rapid Test Not Detected (NotDetected)
[2021-09-14 08:33] VITALS: BMI 57.2
[2021-09-14] MEDS ORDERED: Ondansetron ODT 4 MG TAB PO PRN (09:05)
[2021-09-14] MEDS ORDERED: Ondansetron PF 4 MG/2 ML Vial IVP PRN (09:05)
[2021-09-14] MEDS ORDERED: Acetaminophen 500 MG TAB PO PRN (09:05)
[2021-09-14] MEDS ORDERED: Labetalol HCl 100 MG/20 ML VIAL SLOW IVP PRN (09:05)
[2021-09-14] MEDS ORDERED: Dextrose 50% Abboject 50 ML SYRINGE SLOW IVP PRN (09:05)
[2021-09-14] MEDS ORDERED: niCARdipine 25 MG in Sodium Chloride 0.9% 250 ML 250 ML IVPB SCH ×2 (09:05→10:38)
[2021-09-14] MEDS ORDERED: Dextrose 5% in Water 1,000 ML IV PRN (09:05)
[2021-09-14] MEDS ORDERED: Famotidine 20 MG TAB PO SCH (09:30)
[2021-09-14] MEDS ORDERED: NIFEdipine XL 60 MG TAB PO SCH (10:45)
[2021-09-14] MEDS ORDERED: Losartan 25 MG TAB PO SCH (10:45)
[2021-09-14] MEDS: HumaLOG 300 UNITS/3 ML VIAL SC PRN ×3 (11:12→21:22)
[2021-09-14] MEDS: niCARdipine 50 MG in Sodium Chloride 0.9% 250 ML 230 ML IVPB SCH ×4 (12:01→23:45)
[2021-09-14] MEDS: Famotidine 20 MG TAB PO SCH (21:16)
[2021-09-14] MEDS: hydrALAZINE 25 MG TAB PO SCH (21:16)
[2021-09-14] MEDS: Atorvastatin Calcium 20 MG TAB PO SCH (21:16)
[2021-09-14] MEDS: Timolol 0.5% Ophth Soln 5 ml Bottle R EYE SCH (21:19)
[2021-09-14] MEDS: Brimonidine Tartrate 0.2% Ophth Soln 5 ml Bottle EA EYE SCH (21:21)
[2021-09-14] MEDS: Dorzolamide HCl 2% Ophth Soln 10 ml Bottle EA EYE SCH (21:22)
[2021-09-15 04:05] LABS: #Basophils 0.1 thou/uL (0.0-0.2); #Eosinphils 0.2 thou/uL (0.0-0.7); #Lymphocytes 2.6 thou/uL (1.20-3.40); #Monocytes 0.8 thou/uL (0.11-0.59); #Neutrophils 4.5 thou/uL (1.40-6.50); %Basophils 0.9 % (0.0-1.0); %Eosinophils 2.2 % (0.0-10.0); %Lymphocytes 31.8 % (21.0-51.0); %Monocytes 10.1 % (0.0-10.0); Hemoglobin 10.3 g/dL (14.0-18.0); Mean Corpuscular HGB CONC 32.9 g/dL (32.0-36.0); Mean Corpuscular Hemoglobin 30.5 pg (27.0-31.0); Mean Corpuscular Volume 92.7 fL (78.0-98.0); Mean Platelet Volume 7.8 fL (7.4-10.4); Platelet Count 283 thou/uL (130-400); RBC Distribution Width 11.2 % (11.5-14.5); Red Blood Cell (RBC) Count 3.38 mill/uL (4.70-6.10); White Blood Cell (WBC) Count 8.1 thou/uL (4.8-10.8)
[2021-09-15 04:11] LABS: Hemoglobin A1c 8.5 % (4.0-6.0)
[2021-09-15] MEDS: niCARdipine 50 MG in Sodium Chloride 0.9% 250 ML 230 ML IVPB SCH ×3 (04:24→12:29)
[2021-09-15 04:26] LABS: ALT (SGPT) 12 U/L (8-55); AST (SGOT) 10 U/L (5-34); Albumin 3.4 g/dL (3.5-5.0); Alkaline Phosphatase 36 U/L (40-110); Anion Gap 12 mmol/L (10-20); BUN (Urea Nitrogen) 25 mg/dL (8.9-20.6); Bilirubin, Total 1.5 mg/dL (0.2-1.2); Calc. Creatinine Clearance 147 mL/min (70-130); Calcium 8.6 mg/dL (7.8-10.44); Carbon Dioxide 21 mmol/L (22-29); Chloride 104 mmol/L (98-107); Estimated GFR 46; Globulin 3.2 g/dL (2.4-3.5); Glucose 230 mg/dL (70-105); Magnesium 1.8 mg/dL (1.6-2.6); Potassium 4.2 mmol/L (3.5-5.1); Protein, Total 6.6 g/dL (6.0-8.3); Sodium 133 mmol/L (136-145)
[2021-09-15] MEDS: HumaLOG 300 UNITS/3 ML VIAL SC PRN ×4 (06:10→20:29)
[2021-09-15] MEDS: Timolol 0.5% Ophth Soln 5 ml Bottle R EYE SCH ×2 (08:19→20:22)
[2021-09-15] MEDS: Brimonidine Tartrate 0.2% Ophth Soln 5 ml Bottle EA EYE SCH ×2 (08:20→20:22)
[2021-09-15] MEDS: Dorzolamide HCl 2% Ophth Soln 10 ml Bottle EA EYE SCH ×2 (08:20→20:22)
[2021-09-15] MEDS: Furosemide 40 MG TAB PO SCH (08:21)
[2021-09-15] MEDS: Losartan 25 MG TAB PO SCH (08:21)
[2021-09-15] MEDS: Famotidine 20 MG TAB PO SCH ×2 (08:21→20:22)
[2021-09-15] MEDS: hydrALAZINE 25 MG TAB PO SCH ×3 (08:22→20:21)
[2021-09-15] MEDS: HumuLIN 70/30 (300 UNITS/3 ML VIAL) SC SCH (08:45)
[2021-09-15] MEDS ORDERED: NIFEdipine XL 60 MG TAB PO SCH (09:00)
[2021-09-15] MEDS: NIFEdipine XL 60 MG TAB PO SCH (12:00)
[2021-09-15 12:22] LABS: Actual Bicarbonate (HCO3v) 20 mEq/L (22-28); Base Excess -1.8 mEq/L (-2.0 to +3.0); Calcium, Ionized (venous) 0.95 mmol/L (1.16-1.32); Chloride (VBG) 106 mmol/L (98-106); Hemoglobin (Hb) 11.8 g/dL (13.1-17.2); Potassium (VBG) 4.63 mmol/L (3.70-5.30); Sodium 132.2 mmol/L (133-146); pH (venous) 7.51 (7.32-7.43)
[2021-09-15] MEDS: Atorvastatin Calcium 20 MG TAB PO SCH (20:21)
[2021-09-16] MEDS: Furosemide 40 MG TAB PO SCH (09:12)
[2021-09-16] MEDS: hydrALAZINE 25 MG TAB PO SCH (09:12)
[2021-09-16] MEDS: Timolol 0.5% Ophth Soln 5 ml Bottle R EYE SCH (09:12)
[2021-09-16] MEDS: Losartan 25 MG TAB PO SCH (09:12)
[2021-09-16] MEDS: Famotidine 20 MG TAB PO SCH (09:12)
[2021-09-16] MEDS: Brimonidine Tartrate 0.2% Ophth Soln 5 ml Bottle EA EYE SCH (09:13)
[2021-09-16] MEDS: Dorzolamide HCl 2% Ophth Soln 10 ml Bottle EA EYE SCH (09:13)
[2021-09-16] MEDS: HumuLIN 70/30 (300 UNITS/3 ML VIAL) SC SCH (09:13)
[2021-09-16 09:57] VITALS: TEMP 97.8
[2021-09-16] MEDS: NIFEdipine XL 60 MG TAB PO SCH (11:17)
[2021-09-16 11:18] VITALS: BP 168/80
[2021-09-16] MEDS: HumaLOG 300 UNITS/3 ML VIAL SC PRN (11:18)
== END 2021-09-16 12:29 | disposition home or self-care (01) | DRG 305 ==
LOC: ERS 21:55 → CCU 09-14 05:32
PROVIDERS: ADMIT Internal Medicine; ATTEND Internal Medicine
DX: I16.1 Hypertensive emergency (principal); N17.9 Acute kidney failure, unspecified; Z68.43 Body mass index [BMI] 50.0-59.9, adult; E78.5 Hyperlipidemia, unspecified; E11.21 Type 2 diabetes mellitus with diabetic nephropathy; E66.01 Morbid (severe) obesity due to excess calories; N18.9 Chronic kidney disease, unspecified; I12.9 Hypertensive chronic kidney disease with stage 1 through stage 4 chronic kidney disease, or unspecified chronic kidney disease; E11.22 Type 2 diabetes mellitus with diabetic chronic kidney disease; E11.319 Type 2 diabetes mellitus with unspecified diabetic retinopathy without macular edema; E11.39 Type 2 diabetes mellitus with other diabetic ophthalmic complication; H42 Glaucoma in diseases classified elsewhere; Z89.421 Acquired absence of other right toe(s); Z98.890 Other specified postprocedural states
CPT/HCPCS: 36415; 36416; 70450; 80053; 81003; 81015; 82805; 83036; 83735; 84443; 84484; 85025; 93005; 93306; J0360; J1815; J1885; J7050; U0002

== ENCOUNTER 2023-01-02 17:46 | Inpatient (IN) | payer SELFPAY ==
[2023-01-02 21:23] VITALS: BMI 56.5
[2023-01-02] MEDS ORDERED: Glucagon 1 MG/ML KIT IM PRN (21:24)
[2023-01-02] MEDS ORDERED: Dextrose 50% Abboject 50 ML SYRINGE SLOW IVP PRN (21:24)
[2023-01-02] MEDS ORDERED: Ondansetron ODT 4 MG TAB PO PRN (21:24)
[2023-01-02] MEDS ORDERED: Acetaminophen 650 MG Suppository PR PRN (21:24)
[2023-01-02] MEDS ORDERED: Dextrose 5% in Water 1,000 ML IV PRN (21:24)
[2023-01-02 22:05] LABS: #Monocytes 0.6 thou/uL (0.11-0.59); #Neutrophils 14.9 thou/uL (1.40-6.50); %Basophils 0.2 % (0.0-1.0); %Lymphocytes 6.3 % (21.0-51.0); %Monocytes 3.7 % (0.0-10.0); %Neutrophils 89.4 % (42.0-75.0); Mean Corpuscular HGB CONC 33.3 g/dL (32.0-36.0); Mean Corpuscular Hemoglobin 29.5 pg (27.0-31.0); Mean Corpuscular Volume 88.5 fl (78.0-98.0); Mean Platelet Volume 9.9 fL (7.4-10.4); Platelet Count 280 10x3/uL (130-400); RBC Distribution Width 11.8 % (11.5-14.5); Red Blood Cell (RBC) Count 3.73 mill/uL (4.70-6.10); White Blood Cell (WBC) Count 16.7 10x3/uL (4.8-10.8)
[2023-01-02 22:23] LABS: Lactic Acid 1.9 mmol/L (0.5-2.2)
[2023-01-02 22:28] LABS: Anion Gap 13 mmol/L (10-20); BUN (Urea Nitrogen) 26 mg/dL (8.9-20.6); Calc. Creatinine Clearance 119 mL/min (70-130); Calcium 8.9 mg/dL (7.8-10.44); Carbon Dioxide 20 mmol/L (22-29); Chloride 105 mmol/L (98-107); Estimated GFR 37; Glucose 209 mg/dL (70-105); Potassium 4.9 mmol/L (3.5-5.1); Sodium 133 mmol/L (136-145)
[2023-01-02] MEDS ORDERED: Insulin Glargine 30 UNITS/0.3 ML VIAL SC SCH (22:30)
[2023-01-02] MEDS: Piperacillin/Tazobactam 3.375 GM in Sodium Chloride 0.9% 100 ML IVPB SCH (23:16)
[2023-01-02] MEDS: Sodium Chloride 0.9% 1,000 ML IV SCH (23:16)
[2023-01-02] MEDS: Vancomycin (BATCH) 1.5 GM in Premix 1 BAG IVPB SCH (23:16)
[2023-01-02] MEDS: Morphine 4 MG/ML VIAL SLOW IVP PRN (23:18)
[2023-01-03] MEDS: Acetaminophen 325 MG TAB PO PRN (02:25)
[2023-01-03 05:23] LABS: Bilirubin Negative (Negative); Blood, Urine Trace (Negative); Clarity Turbid (Clear); Glucose, Urine (Dipstick) 70 mg/dL (Negative); Ketone, Urine Negative (Negative); Leukocyte Negative Leu/uL (Negative); Nitrite Negative (Negative); Protein, Urine (Dipstick) 200 mg/dL (Neg-Trace); Specific Gravity, Urine 1.019 (1.002-1.036); Urobilinogen Normal mg/dL (Less than 2); pH, Urine 5.5 (5.0-9.0)
[2023-01-03 05:34] LABS: RBC/HPF 0-3 HPF (0-3)
[2023-01-03 05:49] LABS: Hemoglobin A1c 6.6 % (4.0-6.0)
[2023-01-03] MEDS: Piperacillin/Tazobactam 3.375 GM in Sodium Chloride 0.9% 100 ML IVPB SCH ×3 (06:10→23:34)
[2023-01-03] MEDS: Insulin Glargine 30 UNITS/0.3 ML VIAL SC SCH ×2 (08:03→21:06)
[2023-01-03] MEDS: Morphine 4 MG/ML VIAL SLOW IVP PRN (09:58)
[2023-01-03] MEDS: Vancomycin (BATCH) 1.5 GM in Premix 1 BAG IVPB SCH ×2 (09:59→21:07)
[2023-01-03] MEDS: Sodium Chloride 0.9% 1,000 ML IV SCH (09:59)
[2023-01-03 13:28] LABS: Creatinine, Urine 152.39 mg/dL (63-166)
[2023-01-03] MEDS: HumaLOG 300 UNITS/3 ML VIAL SC PRN (17:41)
[2023-01-03] MEDS: Senokot 8.6 MG TAB PO SCH (21:06)
[2023-01-03] MEDS: HYDROcodone/Acetaminophen 7.5/325 mg Tablet PO PRN (21:07)
[2023-01-04] MEDS: Acetaminophen 325 MG TAB PO PRN (05:58)
[2023-01-04] MEDS: Piperacillin/Tazobactam 3.375 GM in Sodium Chloride 0.9% 100 ML IVPB SCH ×2 (05:59→15:09)
[2023-01-04] MEDS: HumaLOG 300 UNITS/3 ML VIAL SC PRN ×4 (05:59→22:01)
[2023-01-04] MEDS: Insulin Glargine 30 UNITS/0.3 ML VIAL SC SCH ×2 (09:31→22:00)
[2023-01-04 11:07] LABS: #Monocytes 1.6 thou/uL (0.11-0.59); #Neutrophils 14.5 thou/uL (1.40-6.50); %Basophils 0.2 % (0.0-1.0); %Eosinophils 0.1 % (0.0-10.0); %Lymphocytes 7.2 % (21.0-51.0); %Monocytes 9.1 % (0.0-10.0); %Neutrophils 82.6 % (42.0-75.0); Hematocrit 26.7 % (42.0-52.0); Hemoglobin 8.8 g/dL (14.0-18.0); Mean Corpuscular Hemoglobin 29.4 pg (27.0-31.0); Mean Corpuscular Volume 89.3 fl (78.0-98.0); Mean Platelet Volume 10.9 fL (7.4-10.4); Platelet Count 261 10x3/uL (130-400); Red Blood Cell (RBC) Count 2.99 mill/uL (4.70-6.10); White Blood Cell (WBC) Count 17.5 10x3/uL (4.8-10.8)
[2023-01-04 12:31] LABS: Anion Gap 15 mmol/L (10-20); BUN (Urea Nitrogen) 29 mg/dL (8.9-20.6); Calc. Creatinine Clearance 102 mL/min (70-130); Calcium 8.9 mg/dL (7.8-10.44); Carbon Dioxide 18 mmol/L (22-29); Chloride 105 mmol/L (98-107); Estimated GFR 31; Glucose 218 mg/dL (70-105); Potassium 4.4 mmol/L (3.5-5.1); Sodium 134 mmol/L (136-145)
[2023-01-04 12:33] LABS: Vancomycin, Trough 21.4 ug/mL
[2023-01-04] MEDS: Vancomycin (BATCH) 1.5 GM in Premix 1 BAG IVPB SCH (13:01)
[2023-01-04] MEDS: HYDROcodone/Acetaminophen 7.5/325 mg Tablet PO PRN ×2 (15:09→22:04)
[2023-01-04] MEDS ORDERED: Vancomycin (BATCH) 1.5 GM in Premix 1 BAG IVPB SCH (15:30)
[2023-01-04] MEDS ORDERED: NIFEdipine XL 30 MG ER.TAB PO SCH (15:30)
[2023-01-04] MEDS: Senokot 8.6 MG TAB PO SCH (22:00)
[2023-01-04] MEDS: metroNIDAZOLE 500 MG TAB PO SCH (22:00)
[2023-01-04] MEDS: Cefepime 1 GM in Sodium Chloride 0.9% 100 ML IVPB SCH (22:00)
[2023-01-05 05:05] LABS: #Basophils 0.1 thou/uL (0.0-0.2); #Monocytes 1.9 thou/uL (0.11-0.59); #Neutrophils 12.9 thou/uL (1.40-6.50); %Basophils 0.4 % (0.0-1.0); %Eosinophils 0.1 % (0.0-10.0); %Lymphocytes 8.8 % (21.0-51.0); %Monocytes 11.4 % (0.0-10.0); %Neutrophils 77.3 % (42.0-75.0); Hematocrit 25.3 % (42.0-52.0); Hemoglobin 8.4 g/dL (14.0-18.0); Mean Corpuscular HGB CONC 33.2 g/dL (32.0-36.0); Mean Corpuscular Hemoglobin 29.4 pg (27.0-31.0); Mean Corpuscular Volume 88.5 fl (78.0-98.0); Mean Platelet Volume 10.8 fL (7.4-10.4); Platelet Count 285 10x3/uL (130-400); RBC Distribution Width 11.9 % (11.5-14.5); Red Blood Cell (RBC) Count 2.86 mill/uL (4.70-6.10); White Blood Cell (WBC) Count 16.7 10x3/uL (4.8-10.8)
[2023-01-05 05:25] LABS: Anion Gap 14 mmol/L (10-20); BUN (Urea Nitrogen) 28 mg/dL (8.9-20.6); Calc. Creatinine Clearance 96 mL/min (70-130); Calcium 8.4 mg/dL (7.8-10.44); Carbon Dioxide 18 mmol/L (22-29); Chloride 106 mmol/L (98-107); Estimated GFR 29; Glucose 217 mg/dL (70-105); Potassium 4.2 mmol/L (3.5-5.1); Sodium 134 mmol/L (136-145)
[2023-01-05] MEDS: HumaLOG 300 UNITS/3 ML VIAL SC PRN ×4 (05:56→20:47)
[2023-01-05] MEDS: HYDROcodone/Acetaminophen 7.5/325 mg Tablet PO PRN (06:01)
[2023-01-05] MEDS: Acetaminophen 325 MG TAB PO PRN (08:31)
[2023-01-05] MEDS: metroNIDAZOLE 500 MG TAB PO SCH ×3 (08:32→20:41)
[2023-01-05] MEDS: Cefepime 1 GM in Sodium Chloride 0.9% 100 ML IVPB SCH (08:32)
[2023-01-05] MEDS: Insulin Glargine 30 UNITS/0.3 ML VIAL SC SCH ×2 (08:33→20:42)
[2023-01-05] MEDS ORDERED: Cholecalciferol 1,000 UNITS (25 MCG) TAB PO SCH (09:00)
[2023-01-05] MEDS ORDERED: NIFEdipine XL 30 MG ER.TAB PO SCH ×2 (09:00→11:00)
[2023-01-05 10:43] LABS: Vancomycin, Random 19.1 ug/mL (See Comment)
[2023-01-05] MEDS ORDERED: Epoetin (ESRD) 10,000 UNITS/ML VIAL SC SCH (11:00)
[2023-01-05] MEDS ORDERED: Calcitriol 0.25 MCG CAP PO SCH (11:15)
[2023-01-05] MEDS: Vancomycin (BATCH) 1.5 GM in Premix 1 BAG IVPB SCH (15:43)
[2023-01-05] MEDS: Senokot 8.6 MG TAB PO SCH (20:42)
[2023-01-06] MEDS: Vancomycin (BATCH) 1.5 GM in Premix 1 BAG IVPB SCH ×2 (00:51→05:17)
[2023-01-06] MEDS: Cefepime 1 GM in Sodium Chloride 0.9% 100 ML IVPB SCH ×3 (00:52→17:56)
[2023-01-06] MEDS: HumaLOG 300 UNITS/3 ML VIAL SC PRN ×4 (05:26→20:39)
[2023-01-06 06:02] LABS: #Basophils 0.1 thou/uL (0.0-0.2); #Monocytes 2.2 thou/uL (0.11-0.59); #Neutrophils 9.2 thou/uL (1.40-6.50); %Basophils 0.5 % (0.0-1.0); %Eosinophils 0.1 % (0.0-10.0); %Lymphocytes 12.9 % (21.0-51.0); %Monocytes 16.4 % (0.0-10.0); %Neutrophils 68.3 % (42.0-75.0); Hematocrit 23.3 % (42.0-52.0); Hemoglobin 7.8 g/dL (14.0-18.0); Mean Corpuscular HGB CONC 33.5 g/dL (32.0-36.0); Mean Corpuscular Hemoglobin 29.2 pg (27.0-31.0); Mean Corpuscular Volume 87.3 fl (78.0-98.0); Mean Platelet Volume 10.3 fL (7.4-10.4); Platelet Count 284 10x3/uL (130-400); Red Blood Cell (RBC) Count 2.67 mill/uL (4.70-6.10); White Blood Cell (WBC) Count 13.5 10x3/uL (4.8-10.8)
[2023-01-06 06:25] LABS: ALT (SGPT) 20 U/L (8-55); AST (SGOT) 13 U/L (5-34); Alkaline Phosphatase 59 U/L (40-110); Anion Gap 14 mmol/L (10-20); BUN (Urea Nitrogen) 32 mg/dL (8.9-20.6); Bilirubin, Total 1.1 mg/dL (0.2-1.2); Calc. Creatinine Clearance 86 mL/min (70-130); Calcium 8.5 mg/dL (7.8-10.44); Carbon Dioxide 19 mmol/L (22-29); Chloride 103 mmol/L (98-107); Estimated GFR 25; Globulin 3.3 g/dL (2.4-3.5); Glucose 235 mg/dL (70-105); Iron Less than 8 ug/dL (65-175); Iron Binding Capacity, Total 135 mcg/dL (261-462); Potassium 4.2 mmol/L (3.5-5.1); Protein, Total 6.3 g/dL (6.0-8.3); Sodium 132 mmol/L (136-145)
[2023-01-06] MEDS: NIFEdipine XL 60 MG ER.TAB PO SCH (09:00)
[2023-01-06] MEDS: metroNIDAZOLE 500 MG TAB PO SCH ×3 (09:00→20:37)
[2023-01-06] MEDS: Insulin Glargine 30 UNITS/0.3 ML VIAL SC SCH ×2 (09:00→20:40)
[2023-01-06] MEDS: Calcitriol 0.25 MCG CAP PO SCH (09:00)
[2023-01-06] MEDS ORDERED: Bisacodyl 5 MG TAB PO PRN (15:18)
[2023-01-06] MEDS: Calcium Carbonate 500 MG ChewTAB PO PRN (15:39)
[2023-01-06] MEDS: Simethicone Chewable 80 MG TAB PO SCH ×2 (17:58→21:09)
[2023-01-06] MEDS: Sodium Bicarbonate Tab 325 MG TAB PO SCH (20:37)
[2023-01-06] MEDS: Senokot 8.6 MG TAB PO SCH (20:38)
[2023-01-06] MEDS: Timolol 0.5% Ophth Soln 5 ml Bottle R EYE SCH (20:39)
[2023-01-06] MEDS: Brimonidine Tartrate 0.2% Ophth Soln 5 ml Bottle EA EYE SCH (20:48)
[2023-01-06] MEDS: Dorzolamide HCl 2% Ophth Soln 10 ml Bottle EA EYE SCH (20:48)
[2023-01-07] MEDS: Vancomycin (BATCH) 1.5 GM in Premix 1 BAG IVPB SCH (04:05)
[2023-01-07] MEDS: HumaLOG 300 UNITS/3 ML VIAL SC PRN ×2 (05:45→12:45)
[2023-01-07 06:01] LABS: #Basophils 0.1 thou/uL (0.0-0.2); #Eosinphils 0.1 thou/uL (0.0-0.7); #Monocytes 1.7 thou/uL (0.11-0.59); #Neutrophils 8.9 thou/uL (1.40-6.50); %Basophils 0.8 % (0.0-1.0); %Eosinophils 0.6 % (0.0-10.0); %Lymphocytes 14.2 % (21.0-51.0); %Monocytes 12.9 % (0.0-10.0); %Neutrophils 69.1 % (42.0-75.0); Hemoglobin 8.3 g/dL (14.0-18.0); Mean Corpuscular HGB CONC 31.9 g/dL (32.0-36.0); Mean Corpuscular Volume 87.8 fl (78.0-98.0); Mean Platelet Volume 10.3 fL (7.4-10.4); Platelet Count 328 10x3/uL (130-400); RBC Distribution Width 12.3 % (11.5-14.5); Red Blood Cell (RBC) Count 2.96 mill/uL (4.70-6.10); White Blood Cell (WBC) Count 12.9 10x3/uL (4.8-10.8)
[2023-01-07 06:30] LABS: Anion Gap 17 mmol/L (10-20); BUN (Urea Nitrogen) 40 mg/dL (8.9-20.6); Calc. Creatinine Clearance 83 mL/min (70-130); Calcium 8.9 mg/dL (7.8-10.44); Carbon Dioxide 14 mmol/L (22-29); Chloride 103 mmol/L (98-107); Estimated GFR 24; Glucose 166 mg/dL (70-105); Potassium 4.5 mmol/L (3.5-5.1); Sodium 129 mmol/L (136-145)
[2023-01-07] MEDS: metroNIDAZOLE 500 MG TAB PO SCH ×3 (08:16→22:00)
[2023-01-07] MEDS: Cefepime 1 GM in Sodium Chloride 0.9% 100 ML IVPB SCH ×2 (08:16→18:07)
[2023-01-07] MEDS: Insulin Glargine 30 UNITS/0.3 ML VIAL SC SCH ×2 (08:16→22:00)
[2023-01-07] MEDS: Dorzolamide HCl 2% Ophth Soln 10 ml Bottle EA EYE SCH ×2 (08:17→22:03)
[2023-01-07] MEDS: Brimonidine Tartrate 0.2% Ophth Soln 5 ml Bottle EA EYE SCH ×2 (08:17→22:04)
[2023-01-07] MEDS: Simethicone Chewable 80 MG TAB PO SCH ×2 (08:17→12:45)
[2023-01-07] MEDS: Calcitriol 0.25 MCG CAP PO SCH (08:17)
[2023-01-07] MEDS: Sodium Bicarbonate Tab 325 MG TAB PO SCH ×3 (08:17→22:00)
[2023-01-07] MEDS: NIFEdipine XL 60 MG ER.TAB PO SCH (08:17)
[2023-01-07] MEDS: Timolol 0.5% Ophth Soln 5 ml Bottle R EYE SCH ×2 (08:17→22:08)
[2023-01-07] MEDS: Polyethylene Glycol 3350 17 GM Packet PO SCH (08:18)
[2023-01-07] MEDS ORDERED: Atorvastatin Calcium 20 MG TAB PO SCH (09:00)
[2023-01-07] MEDS: Senokot 8.6 MG TAB PO SCH (09:56)
[2023-01-07] MEDS ORDERED: Simethicone Chewable 80 MG TAB PO PRN (17:19)
[2023-01-07] MEDS: Senokot S 8.6-50 MG TAB PO SCH (22:00)
[2023-01-08 05:31] LABS: Hematocrit 24.6 % (42.0-52.0); Hemoglobin 8.2 g/dL (14.0-18.0); Mean Corpuscular HGB CONC 33.3 g/dL (32.0-36.0); Mean Corpuscular Volume 86.9 fl (78.0-98.0); Mean Platelet Volume 9.6 fL (7.4-10.4); Platelet Count 412 10x3/uL (130-400); RBC Distribution Width 12.3 % (11.5-14.5); Red Blood Cell (RBC) Count 2.83 mill/uL (4.70-6.10); White Blood Cell (WBC) Count 13.5 10x3/uL (4.8-10.8)
[2023-01-08] MEDS: Cefepime 1 GM in Sodium Chloride 0.9% 100 ML IVPB SCH ×2 (05:37→17:39)
[2023-01-08] MEDS: HumaLOG 300 UNITS/3 ML VIAL SC PRN ×2 (05:41→17:40)
[2023-01-08] MEDS ORDERED: SODIUM CHLORIDE 0.9% IVPB SCH (06:00)
[2023-01-08] MEDS ORDERED: DAPTOMYCIN IVPB SCH (06:00)
[2023-01-08 06:05] LABS: ALT (SGPT) 26 U/L (8-55); AST (SGOT) 23 U/L (5-34); Albumin 3.1 g/dL (3.5-5.0); Alkaline Phosphatase 72 U/L (40-110); Anion Gap 16 mmol/L (10-20); BUN (Urea Nitrogen) 49 mg/dL (8.9-20.6); Bilirubin, Total 1.3 mg/dL (0.2-1.2); CK (CPK) 55 U/L (30-200); Calc. Creatinine Clearance 81 mL/min (70-130); Calcium 8.8 mg/dL (7.8-10.44); Carbon Dioxide 19 mmol/L (22-29); Chloride 103 mmol/L (98-107); Estimated GFR 24; Globulin 3.7 g/dL (2.4-3.5); Glucose 169 mg/dL (70-105); Potassium 3.9 mmol/L (3.5-5.1); Protein, Total 6.8 g/dL (6.0-8.3); Sodium 134 mmol/L (136-145)
[2023-01-08 06:08] LABS: Delete Auto Diff?? YES; Manual Diff?? YES
[2023-01-08 06:41] LABS: Band 4 % (5-11); CellaVision Operator ID LAB.GE; Large Platelets 3.9 % (0-5); Lymphocytes 11 % (21-51); Monocytes 14 % (0-10); Myelocyte 3 % (0-0); Neutrophil 68 % (42-75); Platelet Adequacy Comment Platelets Increased; Polychromasia SLIGHT = 2-3 cells HPF (0-2); Reactive Lymphocytes 1 % (0-10); Total Cell Count 102
[2023-01-08] MEDS: Timolol 0.5% Ophth Soln 5 ml Bottle R EYE SCH ×2 (08:23→21:39)
[2023-01-08] MEDS: Dorzolamide HCl 2% Ophth Soln 10 ml Bottle EA EYE SCH ×2 (08:24→21:39)
[2023-01-08] MEDS: Brimonidine Tartrate 0.2% Ophth Soln 5 ml Bottle EA EYE SCH ×2 (08:24→21:39)
[2023-01-08] MEDS: Insulin Glargine 30 UNITS/0.3 ML VIAL SC SCH ×2 (08:28→21:32)
[2023-01-08] MEDS: Senokot S 8.6-50 MG TAB PO SCH ×2 (08:29→21:32)
[2023-01-08] MEDS: Sodium Bicarbonate Tab 325 MG TAB PO SCH ×3 (08:29→21:32)
[2023-01-08] MEDS: NIFEdipine XL 90 MG ER.TAB PO SCH (08:29)
[2023-01-08] MEDS: Polyethylene Glycol 3350 17 GM Packet PO SCH (08:29)
[2023-01-08] MEDS: metroNIDAZOLE 500 MG TAB PO SCH ×3 (08:29→21:32)
[2023-01-08] MEDS ORDERED: NIFEdipine XL 60 MG ER.TAB PO SCH (09:00)
[2023-01-08] MEDS: DAPTOmycin 800 MG in Sodium Chloride 0.9% 50 ML IVPB SCH (10:32)
[2023-01-08] MEDS ORDERED: Empagliflozin 10 MG TAB PO SCH ×2 (11:53→12:30)
[2023-01-09] MEDS: Cefepime 1 GM in Sodium Chloride 0.9% 100 ML IVPB SCH ×2 (05:24→18:46)
[2023-01-09 05:49] LABS: Hematocrit 22.8 % (42.0-52.0); Hemoglobin 7.4 g/dL (14.0-18.0); Mean Corpuscular HGB CONC 32.5 g/dL (32.0-36.0); Mean Corpuscular Hemoglobin 28.1 pg (27.0-31.0); Mean Corpuscular Volume 86.7 fl (78.0-98.0); Mean Platelet Volume 9.9 fL (7.4-10.4); Platelet Count 504 10x3/uL (130-400); RBC Distribution Width 12.7 % (11.5-14.5); Red Blood Cell (RBC) Count 2.63 mill/uL (4.70-6.10); White Blood Cell (WBC) Count 13.8 10x3/uL (4.8-10.8)
[2023-01-09 05:55] LABS: Delete Auto Diff?? YES; Manual Diff?? YES
[2023-01-09 06:13] LABS: Anion Gap 15 mmol/L (10-20); BUN (Urea Nitrogen) 46 mg/dL (8.9-20.6); Calc. Creatinine Clearance 91 mL/min (70-130); Calcium 8.7 mg/dL (7.8-10.44); Carbon Dioxide 20 mmol/L (22-29); Chloride 105 mmol/L (98-107); Estimated GFR 27; Glucose 127 mg/dL (70-105); Sodium 136 mmol/L (136-145)
[2023-01-09 06:23] LABS: CellaVision Operator ID lab.abc; Eosinophils 2 % (0-10); Large Platelets 2.9 % (0-5); Lymphocytes 5 % (21-51); Metamyelocyte 3 % (0-0); Monocytes 12 % (0-10); Neutrophil 79 % (42-75); Nucleated RBC (Manual Ct) 1 % (0); Platelet Adequacy Comment Platelets Increased; Polychromasia SLIGHT = 2-3 cells HPF (0-2); Smudge Cells 7.8 %; Target Cells SLIGHT = 2-5 cells HPF (0-1); Total Cell Count 103
[2023-01-09] MEDS: NIFEdipine XL 90 MG ER.TAB PO SCH (10:18)
[2023-01-09] MEDS: Calcitriol 0.25 MCG CAP PO SCH (10:18)
[2023-01-09] MEDS: Empagliflozin 10 MG TAB PO SCH (10:22)
[2023-01-09] MEDS: Polyethylene Glycol 3350 17 GM Packet PO SCH (10:22)
[2023-01-09] MEDS: metroNIDAZOLE 500 MG TAB PO SCH ×3 (10:22→21:05)
[2023-01-09] MEDS: Insulin Glargine 30 UNITS/0.3 ML VIAL SC SCH ×2 (10:23→21:05)
[2023-01-09] MEDS: Dorzolamide HCl 2% Ophth Soln 10 ml Bottle EA EYE SCH ×2 (10:23→21:36)
[2023-01-09] MEDS: Senokot S 8.6-50 MG TAB PO SCH ×2 (10:53→21:05)
[2023-01-09] MEDS: Brimonidine Tartrate 0.2% Ophth Soln 5 ml Bottle EA EYE SCH ×2 (10:56→21:36)
[2023-01-09] MEDS: Timolol 0.5% Ophth Soln 5 ml Bottle R EYE SCH ×2 (11:09→21:36)
[2023-01-09] MEDS: Sodium Bicarbonate Tab 325 MG TAB PO SCH ×3 (11:10→21:05)
[2023-01-09] MEDS: DAPTOmycin 800 MG in Sodium Chloride 0.9% 50 ML IVPB SCH (11:19)
[2023-01-10 05:03] LABS: Hematocrit 21.6 % (42.0-52.0); Mean Corpuscular HGB CONC 32.4 g/dL (32.0-36.0); Mean Corpuscular Hemoglobin 28.9 pg (27.0-31.0); Mean Corpuscular Volume 89.3 fl (78.0-98.0); Mean Platelet Volume 9.5 fL (7.4-10.4); Platelet Count 575 10x3/uL (130-400); Red Blood Cell (RBC) Count 2.42 mill/uL (4.70-6.10); White Blood Cell (WBC) Count 14.1 10x3/uL (4.8-10.8)
[2023-01-10 05:25] LABS: Anion Gap 14 mmol/L (10-20); BUN (Urea Nitrogen) 43 mg/dL (8.9-20.6); Calc. Creatinine Clearance 98 mL/min (70-130); Calcium 8.4 mg/dL (7.8-10.44); Carbon Dioxide 19 mmol/L (22-29); Chloride 108 mmol/L (98-107); Delete Auto Diff?? YES; Estimated GFR 30; Glucose 161 mg/dL (70-105); Manual Diff?? YES; Potassium 4.4 mmol/L (3.5-5.1); Sodium 137 mmol/L (136-145)
[2023-01-10] MEDS: Cefepime 1 GM in Sodium Chloride 0.9% 100 ML IVPB SCH ×2 (06:09→19:57)
[2023-01-10] MEDS: HumaLOG 300 UNITS/3 ML VIAL SC PRN (06:09)
[2023-01-10 08:16] LABS: Anisocytosis SLIGHT = 6-15 cells HPF (0-5); Band 2 % (5-11); CellaVision Operator ID LAB.CMB; Hypochromia SLIGHT = 6-15 cells HPF (0-5); Lymphocytes 9 % (21-51); Macrocytosis SLIGHT = 6-15 cells HPF (0-5); Metamyelocyte 1 % (0-0); Monocytes 10 % (0-10); Neutrophil 75 % (42-75); Nucleated RBC (Manual Ct) 1 % (0); Plasma Cells 1 % (0-0); Platelet Adequacy Comment Platelets Increased; Polychromasia SLIGHT = 2-3 cells HPF (0-2); Total Cell Count 101
[2023-01-10] MEDS: Empagliflozin 10 MG TAB PO SCH (09:52)
[2023-01-10] MEDS: Calcitriol 0.25 MCG CAP PO SCH (09:52)
[2023-01-10] MEDS: Insulin Glargine 30 UNITS/0.3 ML VIAL SC SCH ×2 (09:52→19:57)
[2023-01-10] MEDS: Sodium Bicarbonate Tab 325 MG TAB PO SCH ×3 (09:53→19:56)
[2023-01-10] MEDS: Brimonidine Tartrate 0.2% Ophth Soln 5 ml Bottle EA EYE SCH ×2 (09:53→19:59)
[2023-01-10] MEDS: metroNIDAZOLE 500 MG TAB PO SCH ×3 (09:53→19:56)
[2023-01-10] MEDS: NIFEdipine XL 90 MG ER.TAB PO SCH (09:53)
[2023-01-10] MEDS: Senokot S 8.6-50 MG TAB PO SCH ×2 (09:53→19:57)
[2023-01-10] MEDS: Dorzolamide HCl 2% Ophth Soln 10 ml Bottle EA EYE SCH ×2 (09:54→19:59)
[2023-01-10] MEDS: Polyethylene Glycol 3350 17 GM Packet PO SCH (09:54)
[2023-01-10] MEDS: DAPTOmycin 800 MG in Sodium Chloride 0.9% 50 ML IVPB SCH (09:55)
[2023-01-10] MEDS: Timolol 0.5% Ophth Soln 5 ml Bottle R EYE SCH ×2 (09:55→19:58)
[2023-01-10] MEDS: Calcium Carbonate 500 MG ChewTAB PO PRN (19:56)
[2023-01-11] MEDS: Cefepime 1 GM in Sodium Chloride 0.9% 100 ML IVPB SCH ×2 (05:37→18:36)
[2023-01-11] MEDS: HumaLOG 300 UNITS/3 ML VIAL SC PRN (05:38)
[2023-01-11 08:19] LABS: #Basophils 0.1 thou/uL (0.0-0.2); #Eosinphils 0.2 thou/uL (0.0-0.7); #Monocytes 1.9 thou/uL (0.11-0.59); #Neutrophils 11.5 thou/uL (1.40-6.50); %Basophils 0.8 % (0.0-1.0); %Eosinophils 0.9 % (0.0-10.0); %Monocytes 11.2 % (0.0-10.0); %Neutrophils 67.2 % (42.0-75.0); Hematocrit 25.8 % (42.0-52.0); Hemoglobin 8.2 g/dL (14.0-18.0); Mean Corpuscular HGB CONC 31.8 g/dL (32.0-36.0); Mean Corpuscular Hemoglobin 27.9 pg (27.0-31.0); Mean Corpuscular Volume 87.8 fl (78.0-98.0); Mean Platelet Volume 9.4 fL (7.4-10.4); Platelet Count 643 10x3/uL (130-400); RBC Distribution Width 15.6 % (11.5-14.5); Red Blood Cell (RBC) Count 2.94 mill/uL (4.70-6.10)
[2023-01-11] MEDS: NIFEdipine XL 90 MG ER.TAB PO SCH (08:26)
[2023-01-11] MEDS: Insulin Glargine 30 UNITS/0.3 ML VIAL SC SCH ×2 (08:26→20:22)
[2023-01-11] MEDS: Calcitriol 0.25 MCG CAP PO SCH (08:26)
[2023-01-11] MEDS: Sodium Bicarbonate Tab 325 MG TAB PO SCH ×3 (08:27→20:21)
[2023-01-11] MEDS: metroNIDAZOLE 500 MG TAB PO SCH ×3 (08:27→20:22)
[2023-01-11] MEDS: Brimonidine Tartrate 0.2% Ophth Soln 5 ml Bottle EA EYE SCH ×2 (08:27→20:24)
[2023-01-11] MEDS: Empagliflozin 10 MG TAB PO SCH (08:27)
[2023-01-11] MEDS: Dorzolamide HCl 2% Ophth Soln 10 ml Bottle EA EYE SCH ×2 (08:27→20:24)
[2023-01-11] MEDS: Senokot S 8.6-50 MG TAB PO SCH ×2 (08:27→20:22)
[2023-01-11] MEDS: Polyethylene Glycol 3350 17 GM Packet PO SCH (08:28)
[2023-01-11] MEDS: Timolol 0.5% Ophth Soln 5 ml Bottle R EYE SCH ×2 (08:28→20:23)
[2023-01-11 08:39] LABS: Anion Gap 14 mmol/L (10-20); BUN (Urea Nitrogen) 38 mg/dL (8.9-20.6); Calc. Creatinine Clearance 112 mL/min (70-130); Calcium 8.4 mg/dL (7.8-10.44); Carbon Dioxide 20 mmol/L (22-29); Chloride 107 mmol/L (98-107); Estimated GFR 35; Glucose 134 mg/dL (70-105); Potassium 4.3 mmol/L (3.5-5.1); Sodium 137 mmol/L (136-145)
[2023-01-11] MEDS: DAPTOmycin 800 MG in Sodium Chloride 0.9% 50 ML IVPB SCH (11:00)
[2023-01-11] MEDS ORDERED: EPOETIN ALFA-EPBX (ESRD) 10,000 UNITS/ML VIAL SC SCH (20:00)
[2023-01-12] MEDS: Cefepime 1 GM in Sodium Chloride 0.9% 100 ML IVPB SCH (05:50)
[2023-01-12 06:39] LABS: Anion Gap 15 mmol/L (10-20); BUN (Urea Nitrogen) 34 mg/dL (8.9-20.6); Calc. Creatinine Clearance 112 mL/min (70-130); Calcium 8.7 mg/dL (7.8-10.44); Carbon Dioxide 21 mmol/L (22-29); Chloride 107 mmol/L (98-107); Estimated GFR 35; Glucose 116 mg/dL (70-105); Potassium 4.6 mmol/L (3.5-5.1); Sodium 138 mmol/L (136-145)
[2023-01-12 07:00] LABS: #Basophils 0.1 thou/uL (0.0-0.2); #Eosinphils 0.2 thou/uL (0.0-0.7); #Monocytes 1.8 thou/uL (0.11-0.59); #Neutrophils 10.6 thou/uL (1.40-6.50); %Basophils 0.7 % (0.0-1.0); %Eosinophils 1.1 % (0.0-10.0); %Lymphocytes 16.6 % (21.0-51.0); %Monocytes 11.2 % (0.0-10.0); %Neutrophils 66.8 % (42.0-75.0); Hematocrit 26.5 % (42.0-52.0); Hemoglobin 8.3 g/dL (14.0-18.0); Mean Corpuscular HGB CONC 31.3 g/dL (32.0-36.0); Mean Corpuscular Hemoglobin 27.9 pg (27.0-31.0); Mean Corpuscular Volume 88.9 fl (78.0-98.0); Mean Platelet Volume 10.5 fL (7.4-10.4); Platelet Count 700 10x3/uL (130-400); RBC Distribution Width 15.9 % (11.5-14.5); Red Blood Cell (RBC) Count 2.98 mill/uL (4.70-6.10); White Blood Cell (WBC) Count 15.8 10x3/uL (4.8-10.8)
[2023-01-12] MEDS ORDERED: Ergocalciferol 1.25 MG(50,000 UNITS) CAP PO SCH (09:00)
[2023-01-12] MEDS: Polyethylene Glycol 3350 17 GM Packet PO SCH (09:18)
[2023-01-12] MEDS: Dorzolamide HCl 2% Ophth Soln 10 ml Bottle EA EYE SCH ×2 (09:19→20:17)
[2023-01-12] MEDS: Insulin Glargine 30 UNITS/0.3 ML VIAL SC SCH ×2 (09:20→20:18)
[2023-01-12] MEDS: Sodium Bicarbonate Tab 325 MG TAB PO SCH ×3 (09:21→20:19)
[2023-01-12] MEDS: Calcitriol 0.25 MCG CAP PO SCH (09:21)
[2023-01-12] MEDS: NIFEdipine XL 90 MG ER.TAB PO SCH (09:21)
[2023-01-12] MEDS: Empagliflozin 10 MG TAB PO SCH (09:22)
[2023-01-12] MEDS: Senokot S 8.6-50 MG TAB PO SCH ×2 (09:22→20:19)
[2023-01-12] MEDS: Brimonidine Tartrate 0.2% Ophth Soln 5 ml Bottle EA EYE SCH ×2 (09:23→20:17)
[2023-01-12] MEDS: Timolol 0.5% Ophth Soln 5 ml Bottle R EYE SCH ×2 (09:24→20:17)
[2023-01-12] MEDS ORDERED: EPOETIN ALFA-EPBX (ESRD) 10,000 UNITS/ML VIAL SC SCH (11:00)
[2023-01-12] MEDS: DAPTOmycin 800 MG in Sodium Chloride 0.9% 50 ML IVPB SCH (11:12)
[2023-01-12] MEDS: Cefepime 2 GM in Sodium Chloride 0.9% 100 ML IVPB SCH (17:56)
[2023-01-13] MEDS: Cefepime 2 GM in Sodium Chloride 0.9% 100 ML IVPB SCH (05:32)
[2023-01-13 06:08] LABS: #Basophils 0.1 thou/uL (0.0-0.2); #Eosinphils 0.1 thou/uL (0.0-0.7); #Monocytes 1.9 thou/uL (0.11-0.59); #Neutrophils 9.7 thou/uL (1.40-6.50); %Basophils 0.6 % (0.0-1.0); %Eosinophils 0.9 % (0.0-10.0); %Monocytes 12.5 % (0.0-10.0); %Neutrophils 64.5 % (42.0-75.0); Hematocrit 23.4 % (42.0-52.0); Hemoglobin 7.3 g/dL (14.0-18.0); Mean Corpuscular HGB CONC 31.2 g/dL (32.0-36.0); Mean Corpuscular Hemoglobin 27.5 pg (27.0-31.0); Mean Corpuscular Volume 88.3 fl (78.0-98.0); Mean Platelet Volume 9.3 fL (7.4-10.4); Platelet Count 767 10x3/uL (130-400); RBC Distribution Width 15.8 % (11.5-14.5); Red Blood Cell (RBC) Count 2.65 mill/uL (4.70-6.10); White Blood Cell (WBC) Count 15.1 10x3/uL (4.8-10.8)
[2023-01-13 06:46] LABS: Anion Gap 14 mmol/L (10-20); BUN (Urea Nitrogen) 29 mg/dL (8.9-20.6); Calc. Creatinine Clearance 122 mL/min (70-130); Calcium 8.6 mg/dL (7.8-10.44); Carbon Dioxide 22 mmol/L (22-29); Chloride 107 mmol/L (98-107); Estimated GFR 38; Glucose 103 mg/dL (70-105); Potassium 4.3 mmol/L (3.5-5.1); Sodium 139 mmol/L (136-145)
[2023-01-13] MEDS: Polyethylene Glycol 3350 17 GM Packet PO SCH (08:35)
[2023-01-13] MEDS: Sodium Bicarbonate Tab 325 MG TAB PO SCH (08:35)
[2023-01-13] MEDS: Senokot S 8.6-50 MG TAB PO SCH (08:35)
[2023-01-13] MEDS: NIFEdipine XL 90 MG ER.TAB PO SCH (08:36)
[2023-01-13] MEDS: Calcitriol 0.25 MCG CAP PO SCH (08:36)
[2023-01-13] MEDS: Brimonidine Tartrate 0.2% Ophth Soln 5 ml Bottle EA EYE SCH (08:36)
[2023-01-13] MEDS: Empagliflozin 10 MG TAB PO SCH (08:36)
[2023-01-13] MEDS: Insulin Glargine 30 UNITS/0.3 ML VIAL SC SCH (08:37)
[2023-01-13] MEDS: Timolol 0.5% Ophth Soln 5 ml Bottle R EYE SCH (08:37)
[2023-01-13] MEDS: Dorzolamide HCl 2% Ophth Soln 10 ml Bottle EA EYE SCH (08:40)
[2023-01-13 13:40] VITALS: BP 165/85; TEMP 98.3
== END 2023-01-13 14:04 | disposition home or self-care (01) | DRG 872 ==
LOC: T4-A 17:46
PROVIDERS: ADMIT Internal Medicine; ATTEND Internal Medicine
PROC: 3E03329 Introduction of Other Anti-infective into Peripheral Vein, Percutaneous Approach (ICD-10-PCS; 2023-01-02)
PROC: 30233N1 Transfusion of Nonautologous Red Blood Cells into Peripheral Vein, Percutaneous Approach (ICD-10-PCS; principal; 2023-01-10)
DX: A41.9 Sepsis, unspecified organism (principal); L03.116 Cellulitis of left lower limb; Z68.43 Body mass index [BMI] 50.0-59.9, adult; H33.23 Serous retinal detachment, bilateral; N17.9 Acute kidney failure, unspecified; N25.81 Secondary hyperparathyroidism of renal origin; E87.20 Acidosis, unspecified; N18.4 Chronic kidney disease, stage 4 (severe); E11.628 Type 2 diabetes mellitus with other skin complications; D63.1 Anemia in chronic kidney disease; E11.22 Type 2 diabetes mellitus with diabetic chronic kidney disease; E11.319 Type 2 diabetes mellitus with unspecified diabetic retinopathy without macular edema; E66.01 Morbid (severe) obesity due to excess calories; I12.9 Hypertensive chronic kidney disease with stage 1 through stage 4 chronic kidney disease, or unspecified chronic kidney disease; E78.5 Hyperlipidemia, unspecified; Z98.890 Other specified postprocedural states; Z79.4 Long term (current) use of insulin; Z79.899 Other long term (current) drug therapy; E11.621 Type 2 diabetes mellitus with foot ulcer; G47.33 Obstructive sleep apnea (adult) (pediatric); K59.00 Constipation, unspecified
CPT/HCPCS: 36415; 36416; 36430; 71046; 76770; 80048; 80053; 80202; 81001; 82306; 82550; 82570; 82607; 82728; 83036; 83540; 83550; 83605; 83970; 84156; 85025; 86850; 86900; 86901; 87070; 87077; 87186; 87205; 93306; 97139; J0692; J0878; J1650; J1815; J2270; J2543; J3370; J3490; J7050; P9016; Q0162; Q4081; Q5105